=== PATIENT | female | born 1945 | race Caucasian/White ===

== ENCOUNTER → 2020-08-29 10:34 | Outpatient (CLI) | payer MEDICARE, OTHER, SELFPAY ==
[2020-08-29 10:51] LABS: Bacteria Urine None Seen
[2020-08-29 11:53] LABS: Add Manual Diff / Slide Review NO; Basophils Absolute Auto 100 /uL (0-100); Basophils Percent Auto 1.2 % (0-2); Eosinophils Absolute Auto 100 /uL (0-450); Eosinophils Percent Auto 2.9 % (2-4); Hematocrit 40.6 % (36-46); Hemoglobin 13.4 g/dL (12.0-16.0); Lymphocytes Absolute Auto 1300 /uL (1100-4500); Lymphocytes Percent Auto 25.7 % (25-40); Mean Corpuscular HGB Conc 33.1 % (30-36); Mean Corpuscular Hemoglobin 31.8 PG (26-34); Mean Corpuscular Volume 96.1 fL (80-100); Monocytes Absolute Auto 400 /uL (0-900); Monocytes Percent Auto 8.6 % (3-14); Neutrophils Absolute Auto 3200 /uL (1500-7000); Neutrophils Percent Auto 61.6 % (50-75); Platelet Count 218 X10^3/uL (150-400); Red Blood Cell Count 4.23 X10^6/uL (4.0-5.2); Red Cell Distribution Width 13.5 % (11.6-14.8); White Blood Cell Count 5.1 X10^3/uL (4.5-11.0)
[2020-08-29 12:11] LABS: Appearance Urine UA CLEAR; Bilirubin Urine UA NEGATIVE (NEGATIVE); Color Urine UA YELLOW; Glucose Urine UA NEGATIVE (Negative); Ketones Urine UA NEGATIVE (NEGATIVE); Leukocyte Esterase Urine UA NEGATIVE (NEGATIVE); Nitrite Urine UA NEGATIVE (Negative); Occult Blood Urine UA 1+ (Negative); Protein Urine UA NEGATIVE (Negative); Specific Gravity Urine UA 1.025 (1.000-1.035); Urobilinogen Urine UA 0.2 E.U./dL (0.2)
[2020-08-29 12:23] LABS: Culture Indicated Urine Cult Not Indicated; Mucus Urine 2+ (Negative); RBC Urine 0-1/HPF (0-5/HPF); Squamous Epithelial Cell Urine 5-10 /HPF (0-5/HPF); WBC Urine 0-1/HPF (0-5/HPF)
[2020-08-29 12:24] LABS: Alanine Aminotransferase 27 IU/L (<35); Albumin 4.3 g/dL (3.5-5.0); Albumin Globulin Ratio 1.4 (1.0-2.8); Alkaline Phosphatase 46 U/L (38-126); Aspartate Aminotransferase 40 IU/L (14-36); BUN Creatinine Ratio 23.1 (6-22); Bilirubin Total 0.7 mg/dL (0.2-1.3); Blood Urea Nitrogen 15 mg/dL (7-17); Calcium 9.2 mg/dL (8.4-10.2); Carbon Dioxide 28 mmol/L (22-32); Chloride 104 mmol/L (98-107); Estimated Glomerular Filt Rate > 60.0 mL/min (>60); Globulin 3.1 g/dL (1.7-4.1); Glucose 107 mg/dL (80-110); HEMOLYSIS 19 (0-50); Lipase 97 U/L (23-300); Sodium 138 mmol/L (137-145); Total Protein 7.4 g/dL (6.3-8.2)
== END ==
PROVIDERS: PCP Student in an Organized Health Care Education/Training Program; Referring Provider Internal Medicine Gastroenterology; Visit Provider Internal Medicine Gastroenterology
DX: R14.0 Abdominal distension (gaseous) (principal); R10.84 Generalized abdominal pain
CPT/HCPCS: 36415; 80053; 81001; 83690; 85025

== ENCOUNTER 2021-04-15 18:01 | Observation (INO) | payer MEDICARE, OTHER, SELFPAY ==
[2021-04-15] VITALS (15 sets, daily range): BP systolic 141–199; BP diastolic 67–84; PULSE 52–73; RESP 16–32; TEMP 36.2; O2SAT 96–100; BMI 31.7
--- NOTE | 2021-04-15 18:06 | DI.RAD.S_ITS ---
PROCEDURE: XR CHEST 1V INDICATIONS: chest pressure TECHNIQUE: One view of the chest was acquired. COMPARISON: None. FINDINGS: Surgical changes and devices: None. Lungs and pleura: Lungs are clear. No pleural effusions or pneumothorax. Mediastinum: Mediastinal contours appear normal. Heart size is normal. Bones and chest wall: No suspicious bony lesions. Overlying soft tissues appear unremarkable. IMPRESSION: No acute process. Dictated by: Deepali Kuhn M.D. on 04/15/2021 at 18:30 Approved by: Deepali Kuhn M.D. on 04/15/2021 at 18:30
[2021-04-15 18:14] LABS: Add Manual Diff / Slide Review NO; Basophils Absolute Auto 100 /uL (0-100); Basophils Percent Auto 0.7 % (0-2); Eosinophils Absolute Auto 100 /uL (0-450); Hematocrit 41.4 % (36-46); Hemoglobin 14.3 g/dL (12.0-16.0); Lymphocytes Absolute Auto 3500 /uL (1100-4500); Mean Corpuscular HGB Conc 34.5 % (30-36); Mean Corpuscular Hemoglobin 32.9 PG (26-34); Mean Corpuscular Volume 95.4 fL (80-100); Monocytes Absolute Auto 700 /uL (0-900); Monocytes Percent Auto 8.6 % (3-14); Neutrophils Absolute Auto 3400 /uL (1500-7000); Neutrophils Percent Auto 44.7 % (50-75); Platelet Count 253 X10^3/uL (150-400); Red Blood Cell Count 4.34 X10^6/uL (4.0-5.2); Red Cell Distribution Width 14.7 % (11.6-14.8); White Blood Cell Count 7.7 X10^3/uL (4.5-11.0)
[2021-04-15 18:30] LABS: Alanine Aminotransferase 34 IU/L (<35); Albumin 4.6 g/dL (3.5-5.0); Albumin Globulin Ratio 1.5 (1.0-2.8); Alkaline Phosphatase 58 U/L (38-126); Aspartate Aminotransferase 42 IU/L (14-36); BUN Creatinine Ratio 20.3 (6-22); Bilirubin Total 0.6 mg/dL (0.2-1.3); Blood Urea Nitrogen 13 mg/dL (7-17); Carbon Dioxide 20 mmol/L (22-32); Chloride 106 mmol/L (98-107); Creatine Kinase 106 U/L (30-135); Estimated Glomerular Filt Rate > 60.0 mL/min (>60); Globulin 3.1 g/dL (1.7-4.1); Glucose 103 mg/dL (80-110); HEMOLYSIS 45 (0-50); Potassium 3.2 mmol/L (3.4-5.1); Sodium 137 mmol/L (137-145); Total Protein 7.7 g/dL (6.3-8.2)
--- NOTE | 2021-04-15 18:30 | ED.SOB ---
HPI - SOB/Dyspnea General Chief Complaint: Shortness of Breath/Dyspnea Stated Complaint: Difficulty breathing Time Seen by Provider: 04/15/21 18:03 Source: EMS Mode of arrival: EMS Limitations: no limitations History of Present Illness HPI Narrative: 75-year-old female of SVT presents by EMS for evaluation of increasing episodes of tachycardia, palpitations, shortness of breath and episodes of chest pressure this morning. She was seen and evaluated by Cardiology this morning and has plans for an echo and a Holter monitor in a few weeks but over the course the day developed increasing shortness of breath. She denies any pain, pressure, heaviness, dizziness, weakness or lightheadedness currently, only complains of an inability to catch her breath. She denies any fever chills nor nausea or vomiting. She has no new medications or dietary change. She denies recent travel. Related Data Allergies Allergy/AdvReac Type Severity Reaction Status Date / Time No Known Drug Allergies Allergy Verified 04/15/21 18:12 Review of Systems Constitutional Constitutional: Denies chills, Denies fatigue, Denies fever(s), Denies frequent falls, Denies lethargy and Denies weakness Eyes Eyes: Denies change in vision, Denies eye discharge, Denies irritation and Denies loss of vision ENT Ears, Nose, Mouth, and Throat: Denies change in voice, Denies dizziness, Denies neck pain, Denies sore throat and Denies throat swelling Cardiovascular Cardiovascular: Reports chest pain, Denies irregular heart rhythm, Denies lightheadedness, Denies palpitations, Reports dyspnea, Reports dyspnea on exertion and Denies orthopnea Respiratory Respiratory: Denies cough, Reports dyspnea, Reports dyspnea on exertion and Denies wheezing Gastrointestinal Gastrointestinal: Denies abdominal pain, Denies change in bowel habits, Denies diarrhea, Denies nausea and Denies vomiting Musculoskeletal Musculoskeletal: Denies neck pain and Denies numbness Integumentary/Breasts Skin/Breast: Denies pruritus, Denies erythema, Denies rash and Denies wounds Neurologic Neurologic: Denies behavioral changes, Denies confusion, Denies dizziness, Denies frequent falls, Denies loss of vision, Denies numbness and Denies weakness Psychiatric Psychiatric: Denies anxiety, Denies behavioral changes, Denies confusion, Denies depression, Denies homicidal ideation and Denies suicidal ideation Endocrine Endocrine: Denies fatigue, Denies flushing and Denies palpitations Hematologic/Lymphatic Hematologic/Lymphatic: Denies easy bruising Allergic/Immunologic Allergic/Immunologic: Denies urticaria, Denies throat swelling and Denies wheezing Patient History Social History Smoking Status: Never smoker Smoking Status: Never smoker alcohol intake frequency: 0-2 drinks per day Substance Use Type: does not use Exam Narrative Exam Narrative: GENERAL: [75] year old patient appears stated age. Well-nourished, well-developed patient, in mild distress. HEAD: Atraumatic. Normocephalic. EYES: Pupils equal round and reactive. Extraocular motions intact. No scleral icterus. No injection or drainage. ENT: Nose without bleeding, purulent drainage. Throat without erythema, tonsillar hypertrophy or exudate. Airway patent. NECK: Trachea midline. Non tender CARDIOVASCULAR: Regular rate and rhythm without murmurs, gallops, or rubs. RESPIRATORY: Clear to auscultation. Breath sounds equal bilaterally. No wheezes, rales, or rhonchi. GASTROINTESTINAL: Abdomen soft, non-tender, nondistended. EXTREMITIES: No edema or joint tenderness. BACK: Nontender without deformity or crepitance. No flank tenderness. NEURO: AOx3. SKIN: No rash or erythema of visible areas Initial Vital Signs Initial Vital Signs: Vital Signs Temperature 97.1 F L 04/15/21 18:03 Pulse Rate 73 04/15/21 18:03 Respiratory Rate 18 04/15/21 18:03 Blood Pressure 176/79 H 04/15/21 18:03 Pulse Oximetry 100 04/15/21 18:03 Course Orders Ordered: ED Orders 04/15/21 18:06 XR chest 1V Stat EKG-12 Lead Stat 04/15/21 18:09 Complete Blood Count AUTO DIFF Stat Comprehensive Metabolic Panel Stat D Dimer Stat Magnesium Stat NT-proBNP (BNP-Adult 18+) Stat Prothrombin Time INR Stat Troponin & CK Cardiac Panel Stat 04/15/21 18:16 COVID19 - ADMIT ([employer] swab/PCR) Stat 04/15/21 19:05 EKG-12 Lead Stat Acetaminophen (Acetaminophen 325 Mg Tablet) 650 mg PO Q6HR PRN PRN Reason: Fever/Mild Pain (1-3) Aspirin (Aspirin Ec 325 Mg Tablet) 325 mg PO DAILY EMELY Docusate Sodium (Docusate 100 Mg Capsule) 100 mg PO BID [facility] Enoxaparin Sodium (Enoxaparin 40 Mg/0.4 Ml Syringe) 40 mg SUBCUT DAILY [facility] Morphine Sulfate (Morphine 2 Mg/Ml Inj) 2 mg IV Q5MIN PRN PRN Reason: Chest Pain Naloxone HCl (Naloxone 0.4 Mg/Ml Vial) 0.2 mg IV Q2MIN PRN PRN Reason: Opiate Reversal Nitroglycerin (Nitroglycerin 0.4 Mg Sl Tab) 0.4 mg SL [id number] PRN PRN Reason: Chest Pain Ondansetron HCl (Ondansetron 4 Mg/2 Ml Inj) 4 mg IV Q8HR PRN PRN Reason: Nausea And Vomiting Oxycodone HCl (Oxycodone Ir 5 Mg Tablet) 5 mg PO Q6HR PRN PRN Reason: Pain, Moderate (4-6) Pantoprazole Sodium (Pantoprazole Dr 20 Mg Tablet) 20 mg PO 0600 [facility] Sennosides (Sennosides 8.6 Mg Tablet) 17.2 mg PO BEDTIME MEELY Discontinued Medications POTASSIUM CHLORIDE IN WATER (Potassium Cl 10 Meq/100 Ml Neda) 10 meq in 100 mls @ 100 mls/hr IV Q1H EMELY Stop: 04/15/21 23:44 Last Admin: 04/15/21 22:16 Dose: 100 mls/hr Documented by: Infusion: 04/15/21 21:47 Dose: 100 mls/hr Documented by: Admin: 04/15/21 20:47 Dose: 100 mls/hr Documented by: Infusion: 04/15/21 20:45 Dose: 100 mls/hr Documented by: Admin: 04/15/21 19:45 Dose: 100 mls/hr Documented by: BRIA Lorazepam (Lorazepam 0.5 Mg Tablet) 0.5 mg PO NOW ONE Stop: 04/15/21 23:38 Last Admin: 04/15/21 23:40 Dose: 0.5 mg Documented by: BRIA Vital Signs Vital signs: Vital Signs - 8 hr 04/15/21 18:03 04/15/21 18:34 04/15/21 18:35 Temperature 97.1 F L Pulse Rate 73 62 59 L Respiratory Rate 18 18 16 Blood Pressure 176/79 H 187/83 H Pulse Oximetry 100 99 99 04/15/21 19:00 04/15/21 19:01 04/15/21 19:30 Temperature Pulse Rate 60 59 L 65 Respiratory Rate 29 H 32 H Blood Pressure 161/74 H Pulse Oximetry 99 100 98 04/15/21 19:31 04/15/21 20:00 04/15/21 20:01 Temperature Pulse Rate 62 63 62 Respiratory Rate 26 H 27 H 24 Blood Pressure 199/84 H 163/72 H Pulse Oximetry 97 100 100 04/15/21 20:30 04/15/21 21:00 Temperature Pulse Rate 57 L 59 L Respiratory Rate 17 16 Blood Pressure 158/70 H 141/67 H Pulse Oximetry 99 96 MDM - SOB/Dyspnea Lab Data Result diagrams: 04/15/21 18:09 04/15/21 18:09 Labs: Lab Results 04/15/21 04/15/21 04/15/21 Range/Units 18:09 18:09 18:09 WBC 7.7 (4.5-11.0) X10^3/uL RBC 4.34 (4.0-5.2) X10^6/uL Hgb 14.3 (12.0-16.0) g/dL Hct 41.4 (36-46) % MCV 95.4 (80-100) fL MCH 32.9 (26-34) PG MCHC 34.5 (30-36) % RDW 14.7 (11.6-14.8) % Plt Count 253 (150-400) X10^3/uL Neut % (Auto) 44.7 L (50-75) % Lymph % (Auto) 45.0 H (25-40) % [place] % (Auto) 8.6 (3-14) % Eos % (Auto) 1.0 L (2-4) % Baso % (Auto) 0.7 (0-2) % Neut # (Auto) 3400 (8768-5258) /uL Lymph # (Auto) 3500 (0073-6896) /uL [place] # (Auto) 700 (0-900) /uL Eos # (Auto) 100 (0-450) /uL Baso # (Auto) 100 (0-100) /uL PT (10.1-12.7) SECONDS INR (0.9-1.3) D-Dimer < 200 (<230) ng/mL Sodium 137 (137-145) mmol/L Potassium 3.2 L (3.4-5.1) mmol/L Chloride 106 (98-107) mmol/L Carbon Dioxide 20 L (22-32) mmol/L BUN 13 (7-17) mg/dL Creatinine 0.64 (0.52-1.04) mg/dL Estimated GFR > 60.0 (>60) mL/min BUN/Creatinine Ratio 20.3 (6-22) Glucose 103 (80-110) mg/dL Calcium 10.0 (8.4-10.2) mg/dL Magnesium (1.6-2.3) mg/dL Total Bilirubin 0.6 (0.2-1.3) mg/dL AST 42 H (14-36) IU/L ALT 34 (<35) IU/L Alkaline Phosphatase 58 (38-126) U/L Total Creatine Kinase (30-135) U/L CK-MB (CK-2) (<2.37) ng/mL CK-MB (CK-2) Rel Index (1.5-5.0) % Troponin I (0.01-0.034) ng/mL NT-Pro-B Natriuret Pep (<450) pg/mL Total Protein 7.7 (6.3-8.2) g/dL Albumin 4.6 (3.5-5.0) g/dL Globulin 3.1 (1.7-4.1) g/dL Albumin/Globulin Ratio 1.5 (1.0-2.8) SARS-CoV-2 (PCR) (Negative) 04/15/21 04/15/21 04/15/21 Range/Units 18:09 18:09 18:09 WBC (4.5-11.0) X10^3/uL RBC (4.0-5.2) X10^6/uL Hgb (12.0-16.0) g/dL Hct (36-46) % MCV (80-100) fL MCH (26-34) PG MCHC (30-36) % RDW (11.6-14.8) % Plt Count (150-400) X10^3/uL Neut % (Auto) (50-75) % Lymph % (Auto) (25-40) % [place] % (Auto) (3-14) % Eos % (Auto) (2-4) % Baso % (Auto) (0-2) % Neut # (Auto) (2493-2672) /uL Lymph # (Auto) (2355-7879) /uL [place] # (Auto) (0-900) /uL Eos # (Auto) (0-450) /uL Baso # (Auto) (0-100) /uL PT 10.9 (10.1-12.7) SECONDS INR 1.0 (0.9-1.3) D-Dimer (<230) ng/mL Sodium (137-145) mmol/L Potassium (3.4-5.1) mmol/L Chloride (98-107) mmol/L Carbon Dioxide (22-32) mmol/L BUN (7-17) mg/dL Creatinine (0.52-1.04) mg/dL Estimated GFR (>60) mL/min BUN/Creatinine Ratio (6-22) Glucose (80-110) mg/dL Calcium (8.4-10.2) mg/dL Magnesium 2.1 (1.6-2.3) mg/dL Total Bilirubin (0.2-1.3) mg/dL AST (14-36) IU/L ALT (<35) IU/L Alkaline Phosphatase (38-126) U/L Total Creatine Kinase 106 (30-135) U/L CK-MB (CK-2) 1.39 (<2.37) ng/mL CK-MB (CK-2) Rel Index 1.3 L (1.5-5.0) % Troponin I < 0.012 (0.01-0.034) ng/mL NT-Pro-B Natriuret Pep 341 (<450) pg/mL Total Protein (6.3-8.2) g/dL Albumin (3.5-5.0) g/dL Globulin (1.7-4.1) g/dL Albumin/Globulin Ratio (1.0-2.8) SARS-CoV-2 (PCR) (Negative) 04/15/21 Range/Units 18:16 WBC (4.5-11.0) X10^3/uL RBC (4.0-5.2) X10^6/uL Hgb (12.0-16.0) g/dL Hct (36-46) % MCV (80-100) fL MCH (26-34) PG MCHC (30-36) % RDW (11.6-14.8) % Plt Count (150-400) X10^3/uL Neut % (Auto) (50-75) % Lymph % (Auto) (25-40) % [place] % (Auto) (3-14) % Eos % (Auto) (2-4) % Baso % (Auto) (0-2) % Neut # (Auto) (1720-3549) /uL Lymph # (Auto) (4711-8543) /uL [place] # (Auto) (0-900) /uL Eos # (Auto) (0-450) /uL Baso # (Auto) (0-100) /uL PT (10.1-12.7) SECONDS INR (0.9-1.3) D-Dimer (<230) ng/mL Sodium (137-145) mmol/L Potassium (3.4-5.1) mmol/L Chloride (98-107) mmol/L Carbon Dioxide (22-32) mmol/L BUN (7-17) mg/dL Creatinine (0.52-1.04) mg/dL Estimated GFR (>60) mL/min BUN/Creatinine Ratio (6-22) Glucose (80-110) mg/dL Calcium (8.4-10.2) mg/dL Magnesium (1.6-2.3) mg/dL Total Bilirubin (0.2-1.3) mg/dL AST (14-36) IU/L ALT (<35) IU/L Alkaline Phosphatase (38-126) U/L Total Creatine Kinase (30-135) U/L CK-MB (CK-2) (<2.37) ng/mL CK-MB (CK-2) Rel Index (1.5-5.0) % Troponin I (0.01-0.034) ng/mL NT-Pro-B Natriuret Pep (<450) pg/mL Total Protein (6.3-8.2) g/dL Albumin (3.5-5.0) g/dL Globulin (1.7-4.1) g/dL Albumin/Globulin Ratio (1.0-2.8) SARS-CoV-2 (PCR) Negative (Negative) Discharge Plan Departure Patient Disposition: Admitted as Observation Clinical Impression: Chest pain, Acute dyspnea Admit Date/Time: 04/15/21 21:43 Admit Provider: Rosio Lipscomb
[2021-04-15 18:32] LABS: D Dimer < 200 ng/mL (<230)
[2021-04-15 18:36] LABS: Prothrombin Time 10.9 SECONDS (10.1-12.7)
[2021-04-15 18:41] LABS: NT-proBNP (BNP-Adult 18+) 341 pg/mL (<450); Troponin I < 0.012 ng/mL (0.01-0.034)
[2021-04-15 18:46] LABS: CKMB % Relative Index 1.3 % (1.5-5.0); Creatine Kinase MB 1.39 ng/mL (<2.37)
[2021-04-15 18:57] LABS: Magnesium 2.1 mg/dL (1.6-2.3)
[2021-04-15 19:26] LABS: COVID19 - ADMIT (NP swab/PCR) Negative (Negative)
[2021-04-15] MEDS: POTASSIUM CHLORIDE IN WATER 10 MEQ/100 ML PIGGYBACK 100 MEQ IV ×3 (19:45→22:16)
--- NOTE | 2021-04-15 21:58 | DI.NM.S_ITS ---
PROCEDURE: NM GEE PERF SPECT SINGLE STUDY Exercise myocardial perfusion SPECT with gated imaging and ejection fraction RADIOPHARMACEUTICAL: 27.5 mCi Tc-99m sestamibi IV at peak exercise. INDICATIONS: CP TECHNIQUE: Radiopharmaceutical was injected at peak stress test. SPECT images were obtained, with perfusion images in short axis, horizontal long axis, and vertical long axis views. Gated images were reviewed using Fam[employer] software. COMPARISON: None. CARDIAC STRESS: A standard Leonidas treadmill exercise tolerance test was performed by the patient under the supervision of an attending staff. The patient exercised for 4 minutes and 27 seconds; functional aerobic impairment (YUVAL) is +14%. Hemodynamic data: There is normal blood pressure and heart response to exercise. Patient achieved 103% of maximum predicted heart rate. Symptoms: Patient denied anginal chest pain during exercise. EKG: No diagnostic changes of ischemia; no ectopy. FINDINGS: Raw data: There is good labeling of myocardium by radiotracer. No significant motion artifacts. Urjp-[id number] ratio is 0.27 (normal is less than 0.38 for sestamibi tracer, and less than 0.50 for thallium tracer). Left ventricular function: Gated images demonstrate normal left ventricle wall thickening. No segmental wall motion abnormalities. Left ventricle end diastolic volume is 78 mL. Left ventricle stress ejection fraction is 74%; normal values are above 45%. Myocardial perfusion: There is a mildly intense distal anterior wall defect on stress supine images that improves significantly with prone imaging, suggest breast attenuation artifact. No ischemia or infarction. IMPRESSION: Low risk, probably normal treadmill stress test nuclear study. 1) No perfusion evidence of ischemia or infarction. There is a mildly intense distal anterior wall defect on stress supine images that improves significantly with prone imaging, suggest breast attenuation artifact. 2) Normal left ventricular size, wall motion, and systolic function (EF post stress 74%). 3) No ECG evidence of ischemia. 4) No angina during the study. 5) Mildly reduced exercise tolerance (7.0 METs, YUVAL +14%). Target heart rate achieved. Appropriate BP response to exercise. 6) No prior nuclear stress test available for comparison. Dictated by: Ana Britt MD on 04/16/2021 at 16:59 Approved by: Ana Britt MD on 04/16/2021 at 17:02
[2021-04-15 22:57] LABS: Cholesterol 167 mg/dL (140-199); HDL Cholesterol 107 mg/dL (40-60); LDL Cholesterol Calculated 45 mg/dL (<100); Triglycerides 77 mg/dL (35-150)
[2021-04-15 23:10] LABS: Troponin I < 0.012 ng/mL (0.01-0.034)
[2021-04-15] MEDS: LORazepam 0.5 MG TABLET PO (23:40)
[2021-04-16] VITALS (10 sets, daily range): BP systolic 121–160; BP diastolic 65–76; PULSE 59–70; RESP 14–18; TEMP 36.1–36.7; O2SAT 95–98; BMI 31.7
[2021-04-16] MEDS: POTASSIUM CHLORIDE IN WATER 10 MEQ/100 ML PIGGYBACK 100 MEQ IV (01:38)
--- NOTE | 2021-04-16 01:53 | PC.ADMIT ---
[address] Admission Note: Patient arrived to the unit via bed from the ED. Patient is A&O and denies SOB or pain. Patient was oriented to room and call light. Call light was placed within reach. Patient was told to call for assistance when getting out of bed. Next bag of Potassium was administered at 0138 due to waiting on approval from pharmacy. Patient has belongings at bedside and denied placing them in safe. Angel is at bedside. Patient did not know medication doses so medication reconciliation is deferred until able to bring them in. Patient resting in bed. The patient,Hui Jimenez,75 y/o, was given written information regarding hospital policies, unit procedures and contact persons. Patient's smoking status: Never smoker. Vital Signs - 8 hr 04/15/21 18:03 04/15/21 18:34 04/15/21 18:35 Temperature 97.1 F L Pulse Rate 73 62 59 L Respiratory Rate 18 18 16 Blood Pressure 176/79 H 187/83 H Pulse Oximetry 100 99 99 04/15/21 19:00 04/15/21 19:01 04/15/21 19:30 Temperature Pulse Rate 60 59 L 65 Respiratory Rate 29 H 32 H Blood Pressure 161/74 H Pulse Oximetry 99 100 98 04/15/21 19:31 04/15/21 20:00 04/15/21 20:01 Temperature Pulse Rate 62 63 62 Respiratory Rate 26 H 27 H 24 Blood Pressure 199/84 H 163/72 H Pulse Oximetry 97 100 100 04/15/21 20:30 04/15/21 21:00 04/15/21 22:03 Temperature Pulse Rate 57 L 59 L 56 L Respiratory Rate 17 16 Blood Pressure 158/70 H 141/67 H Pulse Oximetry 99 96 97 04/15/21 22:30 04/15/21 23:00 04/15/21 23:30 Temperature Pulse Rate 52 L 54 L 59 L Respiratory Rate 24 22 27 H Blood Pressure Pulse Oximetry 96 99 99 04/16/21 00:30 Temperature 97.8 F Pulse Rate 65 Respiratory Rate 16 Blood Pressure 160/75 H Pulse Oximetry 98
--- NOTE | 2021-04-16 05:40 | P.HP_ITS ---
History of Present Illness History of Present Illness Date Patient Seen: 04/15/21 Time Patient Seen: 22:06 Chief complaint: Difficulty breathing Narrative: Patient is a 75-year-old female with a hx of PSVT presents by EMS for evaluation of increasing episodes of tachycardia, palpitations, shortness of breath and episodes of band like chest pressure underneath her breasts a crossed the upper abdomen area this morning. She was seen and evaluated by Cardiology this morning and has plans for an echo and a Holter monitor in a few weeks but over the course the day developed increasing shortness of breath while at rest sitting in her car. She denies any pain, pressure, heaviness, dizziness, weakness or lightheadedness currently, only complains of an inability to catch her breath. She denies any fever chills, body aches, nausea, vomiting, changes in vision, headaches, weakness, numbness, arm or jaw pain. Though she does feel a tightness in between her shoulder blades which has been coming and going for over a year along with some occasional arm pain that she has had occasionally coming and going in the left arm for the past several years. She has no new medications or dietary change. She denies recent travel. Patient has a history hyperlipidemia, IBS, proximal supraventricular tachycardia, aerophagia, and hyperlipidemia. Patient is fairly anxious during admit interview, it appears several years ago there adult son came to [place] with the onset of brain cancer at the age of 45 of which he from very quickly thereafter. And being here in the hospital is triggering her anxiety and notes that of late she has had increased anxiety regarding stressors at home. Patient's vital signs upon admit are unremarkable BP is 141/67 with a heart rate of 59 patient is satting at 96% on room air though she continues to complain of being short of breath. Patient's troponin was negative, her BMP was is within normal limits 341. Patient did have a low potassium of 3.2 and K rider 40 mEq was started in the ED. patient's chest x-ray was negative for any abnormal TS and her EKG was a sinus rhythm with a ventricular rate of 74, PVCs, without ST o r T-wave changes. Patient was admitted for overnight observation for chest pain. Patient History Medical History (Updated 04/16/21 @ 05:56 by HIPOLITO Garcia) GERD (gastroesophageal reflux disease) Hyperlipidemia Paroxysmal SVT (supraventricular tachycardia) Surgical History (Updated 04/16/21 @ 05:56 by HIPOLITO Garcia) History of appendectomy History of bunionectomy History of colonoscopy with polypectomy History of hysterectomy Family & Social History Family History Mother Bladder cancer Congestive heart failure Father Diabetes mellitus Heart disease Social History: household members spouse Prior Living Arrangements House Safety & Behavioral: Feels Safe in Current Yes Environment Been Physically Hurt or No Threatened By a Person Suicidal Ideation Description None Suicide Plan Description No Plan Tobacco & Substance use: Smoking Status Never smoker alcohol intake frequency 0-2 drinks per day Substance Use Type does not use Meds Home Medications and Allergies Home Medications Medication Instructions Recorded Confirmed Type aspirin 81 mg PO DAILY 04/16/21 04/16/21 History clindamycin phosphate 1 applic TOPICAL PRN PRN 04/16/21 04/16/21 History estradiol 10 mcg VAGINAL 2XW 04/16/21 04/16/21 History estradiol [Vagifem] 10 mcg VAGINAL 2XW 04/16/21 04/16/21 History hydrocortisone 1 applic TOPICAL PRN PRN 04/16/21 04/16/21 History hyoscyamine sulfate 0.125 mg SUBLINGUAL BID-QID PRN 04/16/21 04/16/21 History metoprolol tartrate 25 mg PO BID 04/16/21 04/16/21 History omega-3 fatty acids [Fish Oil] 1,250 mg PO BID 04/16/21 04/16/21 History omeprazole 20 mg PO DAILY PRN 04/16/21 04/16/21 History peppermint oil [IBgard] 90 mg PO BID 04/16/21 04/16/21 History pimecrolimus [Elidel] 1 applic TOPICAL BID PRN 04/16/21 04/16/21 History rosuvastatin 10 mg PO DAILY 04/16/21 04/16/21 History vit C,U-Ao-jdplb-lutein-zeaxan 1 tab PO QAM AND QHS 04/16/21 04/16/21 History [PreserVision AREDS-2] Allergies Allergy/AdvReac Type Severity Reaction Status Date / Time No Known Drug Allergies Allergy Verified 04/15/21 18:12 Review of Systems Review of Systems ROS: Yes All systems reviewed with the patient and are negative except as otherwise documented Cardiovascular Cardiovascular: Reports dyspnea Respiratory Respiratory: Reports dyspnea Psychiatric Psychiatric: Reports anxiety Exam Vital Signs (past 8 hours): - 04/15/21 22:03 04/15/21 22:30 04/15/21 23:00 Temperature Pulse Rate 56 L 52 L 54 L Respiratory Rate 24 22 Blood Pressure Pulse Oximetry 97 96 99 04/15/21 23:30 04/16/21 00:30 04/16/21 01:56 Temperature 97.8 F Pulse Rate 59 L 65 Respiratory Rate 27 H 16 Blood Pressure 160/75 H Pulse Oximetry 99 98 98 04/16/21 05:00 Temperature 98.1 F Pulse Rate 67 Respiratory Rate 14 Blood Pressure 121/65 Pulse Oximetry 97 Oxygen Delivery Method Room Air Oxygen Flow Rate 0 Narrative Exam Narrative: General: Patient is a well-developed, well-nourished female in no distress at this time. HEENT: Normocephalic, atraumatic, extraocular muscles intact, oral pharynx is clear and mucous membranes are moist. Neck is supple and symmetric, trachea is midline, no adenopathy, no thyroid enlargement, nontender, no masses palpated. Negative for JVD Chest: Normal AP diameter and contour without kyphoscoliosis, no nasal flaring, retractions, or tachypneic labored Lungs: Auscultation of all lung gutierrez are clear without adventitious sounds, wheezes, rhonchi, or rales. Cardio: S1 & S2 with regular rate and rhythm without murmur, rubs, or gallops, no carotid bruit, no cardiac pulsations present. Abdomen: Soft nontender, negative for organomegaly, or masses. Bowel sounds are present in all 4 quadrants without guarding or rebound, no CVA tenderness. Musculoskeletal: Muscle strength and tone are equal within normal limits, no deformity, crepitus, effusions, cyanosis, clubbing or edema present. Full range of motion intact radial and pedal pulses are normal. Skin: Warm dry and intact without rashes, ulcerations or petechiae. Neuro: Alert and orientated x3, strength is +5/5 in all extremities, sensation to touch intact, no gross deficits noted of cranial nerves. Psych: Patient has a well-kept appearance, appropriate affect, mental status attitude thought context and judgment are appropriate for age. Objective Labs Result Diagrams: 04/15/21 18:09 04/15/21 18:09 Labs: Laboratory Results - last 24 hr 04/15/21 04/15/21 04/15/21 18:09 18:09 18:09 WBC 7.7 RBC 4.34 Hgb 14.3 Hct 41.4 MCV 95.4 MCH 32.9 MCHC 34.5 RDW 14.7 Plt Count 253 Neut % (Auto) 44.7 L Lymph % (Auto) 45.0 H Perry % (Auto) 8.6 Eos % (Auto) 1.0 L Baso % (Auto) 0.7 Neut # (Auto) 3400 Lymph # (Auto) 3500 Perry # (Auto) 700 Eos # (Auto) 100 Baso # (Auto) 100 PT INR D-Dimer < 200 Sodium 137 Potassium 3.2 L Chloride 106 Carbon Dioxide 20 L BUN 13 Creatinine 0.64 Estimated GFR > 60.0 BUN/Creatinine Ratio 20.3 Glucose 103 Calcium 10.0 Magnesium Total Bilirubin 0.6 AST 42 H ALT 34 Alkaline Phosphatase 58 Total Creatine Kinase CK-MB (CK-2) CK-MB (CK-2) Rel Index Troponin I NT-Pro-B Natriuret Pep Total Protein 7.7 Albumin 4.6 Globulin 3.1 Albumin/Globulin Ratio 1.5 Triglycerides Cholesterol LDL Cholesterol, Calc HDL Cholesterol SARS-CoV-2 (PCR) 04/15/21 04/15/21 04/15/21 18:09 18:09 18:09 WBC RBC Hgb Hct MCV MCH MCHC RDW Plt Count Neut % (Auto) Lymph % (Auto) Perry % (Auto) Eos % (Auto) Baso % (Auto) Neut # (Auto) Lymph # (Auto) Perry # (Auto) Eos # (Auto) Baso # (Auto) PT 10.9 INR 1.0 D-Dimer Sodium Potassium Chloride Carbon Dioxide BUN Creatinine Estimated GFR BUN/Creatinine Ratio Glucose Calcium Magnesium 2.1 Total Bilirubin AST ALT Alkaline Phosphatase Total Creatine Kinase 106 CK-MB (CK-2) 1.39 CK-MB (CK-2) Rel Index 1.3 L Troponin I < 0.012 NT-Pro-B Natriuret Pep 341 Total Protein Albumin Globulin Albumin/Globulin Ratio Triglycerides Cholesterol LDL Cholesterol, Calc HDL Cholesterol SARS-CoV-2 (PCR) 04/15/21 04/15/21 04/15/21 18:16 22:32 22:32 WBC RBC Hgb Hct MCV MCH MCHC RDW Plt Count Neut % (Auto) Lymph % (Auto) Perry % (Auto) Eos % (Auto) Baso % (Auto) Neut # (Auto) Lymph # (Auto) Perry # (Auto) Eos # (Auto) Baso # (Auto) PT INR D-Dimer Sodium Potassium Chloride Carbon Dioxide BUN Creatinine Estimated GFR BUN/Creatinine Ratio Glucose Calcium Magnesium Total Bilirubin AST ALT Alkaline Phosphatase Total Creatine Kinase CK-MB (CK-2) CK-MB (CK-2) Rel Index Troponin I < 0.012 NT-Pro-B Natriuret Pep Total Protein Albumin Globulin Albumin/Globulin Ratio Triglycerides 77 Cholesterol 167 LDL Cholesterol, Calc 45 HDL Cholesterol 107 H SARS-CoV-2 (PCR) Negative Assessment & Plan Assessment & Plan narrative: 1. Acute chest pain-recurrent, acute on chronic, not present on admission in ED in the setting of paroxysmal SVT and hyperlipidemia, chronic, not present on admission -Rule out myocardial ischemia, ACS, CAD, aortic dissection Heart score: 6, GCS score:15 -Continuous tele monitoring and order echo, and stress test for tomorrow -Serial troponins 1 Q 6 hours x3, proBNP, TSH, BNP, Mag, lipids - aspirin 325 mg QD -echo and stress test ordered for tomorrow, recommend Holter to be monitored upon discharge Monitor for hypertensive emergencies with acute end-organ damage, ventricular tachycardia, unstable SVT, hypertension, angina or CT, heart failure, renal function. O2 to keep O2 sats greater than 92% potassium > 4 and Mag > 2 -continue patient's rouvastatin and metoprolol 2. Hypokalemia, acute, present on admission -as evidence by a potassium of 3.2-40 mEq IV provided in the ED will continue to monitor electrolyte. 3. GERD, chronic, not present on admission-well controlled -continue patient's omeprazole Code status: Full code Surrogate decision maker: Spouse Sam Code PCR: Negative DVT/VTE prophylaxis: Lovenox 40 mg and SCDs Scores GCS Bridget coma scale eye opening: Spontaneous [place] coma scale verbal response: Orientated [place] coma scale motor response: Obey commands [place] coma scale total score: 15 Wells' Criteria for PE Clinical signs and symptoms of DVT: No PE is #1 Dx or equally likely: No Heart rate > 100: No Immobilization at least 3 days or surg in previous 4 weeks: No History of PE or DVT: No Hemoptysis: No Malignancy w/Treatment within 6 months or palliative: No Wells' PE Score total: 0
[2021-04-16] MEDS: PANTOPRAZOLE DR 20 MG TABLET PO (05:46)
[2021-04-16 06:02] LABS: INR 1.1 (0.9-1.3); Prothrombin Time 11.8 SECONDS (10.1-12.7)
[2021-04-16 06:21] LABS: Troponin I < 0.012 ng/mL (0.01-0.034)
[2021-04-16 06:41] LABS: BUN Creatinine Ratio 20.3 (6-22); Blood Urea Nitrogen 12 mg/dL (7-17); Calcium 9.4 mg/dL (8.4-10.2); Carbon Dioxide 24 mmol/L (22-32); Chloride 108 mmol/L (98-107); Estimated Glomerular Filt Rate > 60.0 mL/min (>60); Glucose 104 mg/dL (80-110); HEMOLYSIS < 15 (0-50); Sodium 137 mmol/L (137-145)
[2021-04-16 06:50] LABS: NT-proBNP (BNP-Adult 18+) 495 pg/mL (<450)
[2021-04-16] MEDS: ASPIRIN EC 325 MG TABLET PO (09:55)
[2021-04-16] MEDS: ENOXAPARIN 40 MG/0.4 ML SYRINGE SUBCUT (09:55)
[2021-04-16] MEDS: DOCUSATE 100 MG CAPSULE PO (09:55)
[2021-04-16] MEDS: ATORVASTATIN 20 MG TABLET PO (09:55)
--- NOTE | 2021-04-16 11:13 | PC.NURSE ---
Addendum entered by Araceli Sampson R.N. 04/16/21 13:08: Patient returned from DI. Denies pain at this time. Back on tele, remains SL. Original Note: Patient A/O x 4, denies chest pain, lightheadedness, dizziness or upper gastric pain at this time. Remains NPO. Morning medications administered except Metoprolol, held per MD. Patient on RA, 98%. remains bedside. Denies further needs at this time.
--- NOTE | 2021-04-16 12:45 | PT-IP ANOTE ---
checked on pt and pt talking with the doctor. checked back on pt and pt is out of her room and spouse stated that pt is having stress test done. will f/u in the afternoon.
--- NOTE | 2021-04-16 13:23 | CM.IDA ---
Initial DCP Assessment Note Pt is a 75 yo female, resident of [place], arrives to the ED w/tachycardia, palpitations, shortness of breath. PMH includes supraventricular tachycardia H+P indicates the following: Patient is fairly anxious during admit interview, it appears several years ago there adult son came to [place] with the onset of brain cancer at the age of 45 of which he from very quickly thereafter. And being here in the hospital is triggering her anxiety and notes that of late she has had increased anxiety regarding stressors at home. PCP: Renita Cervantes Payer: HERMIN[employer]/[place] Met w/patient and her spouse Angel this morning, introduced role of TOLL LINE MECHANIC. Patient states she is awaiting echo and stress test and is hopeful she will be able to go home after. Patient states she is mostly indp at baseline and spouse assists w/cleaning, chores and cooking when needed. Patient states there are no concerns or needs from this TOLL LINE MECHANIC, appreciative of the visit. No needs expected from DC planning team although will remain available in case this changes before patient's DC. SUPRIYA Holliday Discharge Planning/Care Management CM Discharge Assessment Start: 04/16/21 13:21 Freq: Status: Active Protocol: Document 04/16/21 13:21 HECTOR (Rec: 04/16/21 13:23 HECTOR [id number]) Discharge Planning Assessment Assigned Lawn Service Manager SUPRIYA Marks DPOA/Assigned Designee Name Angel Jimenez, spouse Contact Information [phone] Advance Directives? Yes Advance Directives on File No History Provided By Patient,Significant Other Prior Living Arrangements House Household Members spouse Type of transporation used prior to Drives own vehicle admit Independent with ADL's Yes Is patient alert and oriented? Yes Barriers to Discharge No Comment Home w/spouse expected Discharge Plan Home Transportation Arrangement Spouse Referrals Initiated None needed Whiteboard Updated in Patient Room with Yes name and ext. # of Lawn Service Manager
--- NOTE | 2021-04-16 14:04 | PT.IIE ---
Surgical History (Last Updated 04/16/21 @ 05:56 by Rosio Lipscomb [facility]) History of appendectomy History of bunionectomy History of colonoscopy with polypectomy History of hysterectomy Medical History (Last Updated 04/16/21 @ 05:56 by Rosio Lipscomb [facility]) GERD (gastroesophageal reflux disease) Hyperlipidemia Paroxysmal SVT (supraventricular tachycardia) Physical Therapy Inpatient Evaluation/Re-Eval M1 PT/OT-IP Prior Functional Status Start: 04/16/21 15:03 Freq: NEEDED Status: Active Protocol: Document 04/16/21 14:04 AB (Rec: 04/16/21 15:20 AB [id number]) Medical Review Prior Functional Status Medical History Reviewed Yes Communication able to make needs known Mobility and Gait pt stated that she is independent with all mobilties and ambulation without AD but occasionally uses a walking stick due to hip problem Social History Household Members spouse Living Arrangements House Number of Floors (Floors) One Floor Number of Stairs To Enter/Railing? 1 step down to enter with wall rails on B sides of the door Home Environment High Toilet,Walk in Shower Home Equipment Hand Held Shower Employment Status Retired Additional Social History Comment pt has walking sticks M2 PT-IP Current Condition Start: 04/16/21 15:03 Freq: NEEDED Status: Active Protocol: Document 04/16/21 14:04 AB (Rec: 04/16/21 15:20 AB [id number]) Physical Therapy Current Condition Current Condition Evaluation Date 04/16/21 Treatment Diagnosis SOB; chest pain r/o UT; difficulty in walking Onset Date 04/15/21 M3 PT-IP Subjective Start: 04/16/21 15:03 Freq: NEEDED Status: Active Protocol: Document 04/16/21 14:04 AB (Rec: 04/16/21 15:20 AB [id number]) Subjective Physical Therapy Visit Type Type Initial Evaluation Visit Start Time 14:04 Visit Stop Time 14:40 Total Visit Minutes 36 Number of MANUFACTURING ENGINEERING TECHNOLOGIST Visits 0 Physical Therapy Visit Comments Patient Comments pt is agreeable to do PT Therapy Pain Assessment Pain Present Pain Present Denied Pain M4 PT-IP Mobility and Gait Start: 04/16/21 15:03 Freq: NEEDED Status: Active Protocol: Document 04/16/21 14:04 AB (Rec: 04/16/21 15:20 AB [id number]) PT-Bed Mobility Assessment Supine to Sit Supine to Sit Standby Assistance,Bedrails Sit to Supine Sit to Supine Standby Assistance,Bedrails PT-Transfer Assessment Sit to and From Stand Sit to and from Stand Contact Guard Assistance,1 Person Assistance,Use of Upper Extremities Equipment Transfer Assistive Device None,Gait Belt,Straight Cane Orthotic/Prosthetic Devices or Brace: No Comments Mobility Comments pt completed supine to sit SBA but pt used bed rail to assist. pt stated that she is tired and did not sleep much last night. agreed to do PT but requested to go back to bed afterwards. pt was able to sit on EOB SBA. completed sit to stand from EOB CGA and ambulated in room without AD CGA to min A and cues. presents with antalgic gait with increase lateral lean to the R and gait deviation to the R. presents with unsteady gait but without LOB. pt stated that she just finished her PT for L hip bursitis and also has L plantar fasciitis. assessed ambulation using SPC and pt completed SBA and with better steadiness compared to without AD. pt completed up/down step stool holding on to L side of door for support. initially requiring min A. pt educated on techniques and completed up /down step stool using L side of door CGA. pt ambulated using SPC ~ 20 ft in room SBA. pt went back to bed. completed sit to supine SBA. positioned in bed. call light and table placed within reach . pt c/o slight SOB. BP 121/79 O2 sat maintained at 98-99% during PT session and HR 77-79 bpm. Gait Assessment Gait Distance (Feet) 20 Able to Maintain Weight Bearing Status Yes During Gait Assistive Devices Assistive Device None,Gait Belt,Straight Cane Orthotic/Prosthetic Devices or Brace: No Gait Deviations General Gait Pattern Antalgic,Decreased Stride Length,Decreased Feet Clearance Factors Limiting Gait Function Factors Limiting Gait Function Decreased Activity Tolerance, Decreased Strength,Poor Balance Comments Gait Comments pls refer to mobility section for details. pt educated on safety and use of her walking stick at this time. pt understood. Stair Climbing Assessment Evaluation Level of Assist On Stairs Contact Guard Assistance, Minimal Assistance,1 Person Assistance Devices Stair Climbing Assistive Devices Left Railing Technique/Endurance Stair Climbing Direction Ascend and Descend Stair Climbing Technique Step to Step Number of Steps Climbed 1 Query Text: Stair Climbing Set # Repetitions (reps) 2 Comments Stair Climbing Comments pls refer to mobility section for details PT-Balance Assessment Sitting Balance and Reactions Static Sitting Balance Ability Good Dynamic Sitting Balance Ability Good Standing Balance and Reactions Static Standing Balance Ability Fair Dynamic Standing Balance Ability Fair Device Used SPC M5 PT-IP Objective Assessments Start: 04/16/21 15:03 Freq: NEEDED Status: Active Protocol: Document 04/16/21 14:04 AB (Rec: 04/16/21 15:20 AB [id number]) Orientation Orientation/Cognition Level of Alertness Alert Orientation Name,Place,Situation Language Function Ability No Deficits Noted Safety Awareness Understands Safety Issues Memory Description No Deficits Noted Gross Range of Motion Lower Extremity ROM Assessment Within Functional Limits Strength Lower Extremity Strength Assessment Within Functional Limits Coordination Assessment Gross Coordination Gross Coordination WNL Sensation Assessment Sensation Gross Sensation WNL Muscle Tone Muscle Tone WNL Yes M6 PT-IP Treatment Start: 04/16/21 15:03 Freq: NEEDED Status: Active Protocol: Document 04/16/21 14:04 AB (Rec: 04/16/21 15:20 AB [id number]) Physical Therapy Treatment Education Education Provided Safety M7 PT-IP Assessment and Plan Start: 04/16/21 15:03 Freq: NEEDED Status: Active Protocol: Document 04/16/21 14:04 AB (Rec: 04/16/21 15:20 AB [id number]) PT Summary Assessment and Plan Potential Rehabilitation Potential Good Status of Condition at Evaluation Stable Summary Impairments Pain,ROM,Strength,Balance,Bed Mobility,Transfers,Gait, Activity Tolerance Assessment Summary pt requiring CGA to min A with mobility. recommending use of her walking stick for ambulation at this time for safety and pt understood. pt lives with her spouse and spouse will be able to assist pt at home. pt presents with decrease activity tolerance affecting mobility. will continue PT to improve overall strength and functional independence. Goals Bed Mobility Goal Independent Transfer Goal Independent Gait Goal Independent Gait Distance 200 Other Goals up/down 1 step 1 rail mod I Days to Meet Goals 3 Frequency of Treatment Frequency Of Treatment Once a Day Treatment Plan Physical Therapy Treatment Plan Bed Mobility Training,Transfer Training,Gait Training, Therapeutic Exercise,Balance Retraining,Discharge Planning, Neuromuscular Re-ed, Coordination Retraining Other Recommendations and Next Treatment ambulation, stair climbing Focus Recommendations To Nursing Amount of Assist Needed 1 Person Assist Discharge Recommendations PT Discharge Recommendations Home with Assistance Transportation Needs at Discharge Private Vehicle
--- NOTE | 2021-04-16 18:02 | PM.DS.1 ---
History of Present Illness History of Present Illness Chief complaint: Difficulty breathing Narrative: Patient is a 75-year-old female with a hx of PSVT presents by EMS for evaluation of increasing episodes of tachycardia, palpitations, shortness of breath and episodes of band like chest pressure underneath her breasts a crossed the upper abdomen area this morning. She was seen and evaluated by Cardiology this morning and has plans for an echo and a Holter monitor in a few weeks but over the course the day developed increasing shortness of breath while at rest sitting in her car. She denies any pain, pressure, heaviness, dizziness, weakness or lightheadedness currently, only complains of an inability to catch her breath. She denies any fever chills, body aches, nausea, vomiting, changes in vision, headaches, weakness, numbness, arm or jaw pain. Though she does feel a tightness in between her shoulder blades which has been coming and going for over a year along with some occasional arm pain that she has had occasionally coming and going in the left arm for the past several years. She has no new medications or dietary change. She denies recent travel. Patient has a history hyperlipidemia, IBS, proximal supraventricular tachycardia, aerophagia, and hyperlipidemia. Patient is fairly anxious during admit interview, it appears several years ago there adult son came to [place] with the onset of brain cancer at the age of 45 of which he from very quickly thereafter. And being here in the hospital is triggering her anxiety and notes that of late she has had increased anxiety regarding stressors at home. Patient's vital signs upon admit are unremarkable BP is 141/67 with a heart rate of 59 patient is satting at 96% on room air though she continues to complain of being short of breath. Patient's troponin was negative, her BMP was is within normal limits 341. Patient did have a low potassium of 3.2 and K rider 40 mEq was started in the ED. patient's chest x-ray was negative for any abnormal TS and her EKG was a sinus rhythm with a ventricular rate of 74, PVCs, without ST or T-wave changes. Patient was admitted for overnight observation for chest pain. Discharge Providers Provider Date of admission: 04/15/21 21:43 Discharge Date: 04/16/21 Primary care physician: AYDIN Everett Consults: 04/15/21 22:02 Consult to Physical Therapy Evaluate & Treat Comment: CP with exertion Physician Instructions: Evaluate and Treat Discharge provider: Navin Bowen MD Summary Hospital Course Discharge Diagnosis: 1. Dyspnea 2. Atypical chest pain 3. Palpitations 4. History of PSVT 5. Mild hypokalemia PROCEDURE: NM GEE PERF SPECT SINGLE STUDY Exercise myocardial perfusion SPECT with gated imaging and ejection fraction RADIOPHARMACEUTICAL: 27.5 mCi Tc-99m sestamibi IV at peak exercise. INDICATIONS: CP TECHNIQUE: Radiopharmaceutical was injected at peak stress test. SPECT images were obtained, with perfusion images in short axis, horizontal long axis, and vertical long axis views. Gated images were reviewed using [employer] software. COMPARISON: None. CARDIAC STRESS: A standard Leonidas treadmill exercise tolerance test was performed by the patient under the supervision of an attending staff. The patient exercised for 4 minutes and 27 seconds; functional aerobic impairment (YUVAL) is +14%. Hemodynamic data: There is normal blood pressure and heart response to exercise. Patient achieved 103% of maximum predicted heart rate. Symptoms: Patient denied anginal chest pain during exercise. EKG: No diagnostic changes of ischemia; no ectopy. FINDINGS: Raw data: There is good labeling of myocardium by radiotracer. No significant motion artifacts. Ucop-zq-pdhsq ratio is 0.27 (normal is less than 0.38 for sestamibi tracer, and less than 0.50 for thallium tracer). Left ventricular function: Gated images demonstrate normal left ventricle wall thickening. No segmental wall motion abnormalities. Left ventricle end diastolic volume is 78 mL. Left ventricle stress ejection fraction is 74%; normal values are above 45%. Myocardial perfusion: There is a mildly intense distal anterior wall defect on stress supine images that improves significantly with prone imaging, suggest breast attenuation artifact. No ischemia or infarction. IMPRESSION: Low risk, probably normal treadmill stress test nuclear study. 1) No perfusion evidence of ischemia or infarction. There is a mildly intense distal anterior wall defect on stress supine images that improves significantly with prone imaging, suggest breast attenuation artifact. 2) Normal left ventricular size, wall motion, and systolic function (EF post stress 74%). 3) No ECG evidence of ischemia. 4) No angina during the study. 5) Mildly reduced exercise tolerance (7.0 METs, YUVAL +14%). Target heart rate achieved. Appropriate BP response to exercise. 6) No prior nuclear stress test available for comparison. Dictated by: Ana Britt MD on 04/16/2021 at 16:59 Approved by: Ana Britt MD on 04/16/2021 at 17:02 Patient was admitted for rule out and had serial 9- troponin and no ischemic findings on EKG. There is no significant ectopy during her treadmill myocardial perfusion stress test which was a low risk study. Patient did have mild hypokalemia with serum potassium of 3.2 and received potassium replacement with repeat potassium level of 4.0. She is not on any diuretics. Patient is already scheduled for echo and ZIO patch later this month with her diagnostic technologist Dr. Suazo and will be following up with him. She should also have potassium recheck and ideally have her potassium level above 4.0 due to history of PSVT. Exam Vital Signs (past 8 hours): - 04/16/21 13:06 04/16/21 13:12 04/16/21 14:25 Temperature 97.1 F L Pulse Rate 59 L Respiratory Rate 16 Blood Pressure 139/76 Pulse Oximetry 97 96 97 04/16/21 15:47 Temperature 97.3 F L Pulse Rate 70 Respiratory Rate 18 Blood Pressure 133/70 Pulse Oximetry 97 Oxygen Delivery Method Room Air Oxygen Flow Rate 0 Objective Labs Result Diagrams: 04/15/21 18:09 04/16/21 05:11 Labs: Laboratory Results - last 24 hr 04/15/21 04/15/21 04/15/21 18:09 18:09 18:09 WBC 7.7 RBC 4.34 Hgb 14.3 Hct 41.4 MCV 95.4 MCH 32.9 MCHC 34.5 RDW 14.7 Plt Count 253 Neut % (Auto) 44.7 L Lymph % (Auto) 45.0 H [place] % (Auto) 8.6 Eos % (Auto) 1.0 L Baso % (Auto) 0.7 Neut # (Auto) 3400 Lymph # (Auto) 3500 [place] # (Auto) 700 Eos # (Auto) 100 Baso # (Auto) 100 PT INR D-Dimer < 200 Sodium 137 Potassium 3.2 L Chloride 106 Carbon Dioxide 20 L BUN 13 Creatinine 0.64 Estimated GFR > 60.0 BUN/Creatinine Ratio 20.3 Glucose 103 Calcium 10.0 Magnesium Total Bilirubin 0.6 AST 42 H ALT 34 Alkaline Phosphatase 58 Total Creatine Kinase CK-MB (CK-2) CK-MB (CK-2) Rel Index Troponin I NT-Pro-B Natriuret Pep Total Protein 7.7 Albumin 4.6 Globulin 3.1 Albumin/Globulin Ratio 1.5 Triglycerides Cholesterol LDL Cholesterol, Calc HDL Cholesterol SARS-CoV-2 (PCR) 04/15/21 04/15/21 04/15/21 18:09 18:09 18:09 WBC RBC Hgb Hct MCV MCH MCHC RDW Plt Count Neut % (Auto) Lymph % (Auto) [place] % (Auto) Eos % (Auto) Baso % (Auto) Neut # (Auto) Lymph # (Auto) [place] # (Auto) Eos # (Auto) Baso # (Auto) PT 10.9 INR 1.0 D-Dimer Sodium Potassium Chloride Carbon Dioxide BUN Creatinine Estimated GFR BUN/Creatinine Ratio Glucose Calcium Magnesium 2.1 Total Bilirubin AST ALT Alkaline Phosphatase Total Creatine Kinase 106 CK-MB (CK-2) 1.39 CK-MB (CK-2) Rel Index 1.3 L Troponin I < 0.012 NT-Pro-B Natriuret Pep 341 Total Protein Albumin Globulin Albumin/Globulin Ratio Triglycerides Cholesterol LDL Cholesterol, Calc HDL Cholesterol SARS-CoV-2 (PCR) 04/15/21 04/15/21 04/15/21 18:16 22:32 22:32 WBC RBC Hgb Hct MCV MCH MCHC RDW Plt Count Neut % (Auto) Lymph % (Auto) [place] % (Auto) Eos % (Auto) Baso % (Auto) Neut # (Auto) Lymph # (Auto) [place] # (Auto) Eos # (Auto) Baso # (Auto) PT INR D-Dimer Sodium Potassium Chloride Carbon Dioxide BUN Creatinine Estimated GFR BUN/Creatinine Ratio Glucose Calcium Magnesium Total Bilirubin AST ALT Alkaline Phosphatase Total Creatine Kinase CK-MB (CK-2) CK-MB (CK-2) Rel Index Troponin I < 0.012 NT-Pro-B Natriuret Pep Total Protein Albumin Globulin Albumin/Globulin Ratio Triglycerides 77 Cholesterol 167 LDL Cholesterol, Calc 45 HDL Cholesterol 107 H SARS-CoV-2 (PCR) Negative 04/16/21 04/16/21 04/16/21 05:11 05:11 05:11 WBC RBC Hgb Hct MCV MCH MCHC RDW Plt Count Neut % (Auto) Lymph % (Auto) [place] % (Auto) Eos % (Auto) Baso % (Auto) Neut # (Auto) Lymph # (Auto) [place] # (Auto) Eos # (Auto) Baso # (Auto) PT 11.8 INR 1.1 D-Dimer Sodium Potassium Chloride Carbon Dioxide BUN Creatinine Estimated GFR BUN/Creatinine Ratio Glucose Calcium Magnesium Total Bilirubin AST ALT Alkaline Phosphatase Total Creatine Kinase CK-MB (CK-2) CK-MB (CK-2) Rel Index Troponin I < 0.012 NT-Pro-B Natriuret Pep 495 H Total Protein Albumin Globulin Albumin/Globulin Ratio Triglycerides Cholesterol LDL Cholesterol, Calc HDL Cholesterol SARS-CoV-2 (PCR) 04/16/21 05:11 WBC RBC Hgb Hct MCV MCH MCHC RDW Plt Count Neut % (Auto) Lymph % (Auto) [place] % (Auto) Eos % (Auto) Baso % (Auto) Neut # (Auto) Lymph # (Auto) [place] # (Auto) Eos # (Auto) Baso # (Auto) PT INR D-Dimer Sodium 137 Potassium 4.0 Chloride 108 H Carbon Dioxide 24 BUN 12 Creatinine 0.59 Estimated GFR > 60.0 BUN/Creatinine Ratio 20.3 Glucose 104 Calcium 9.4 Magnesium Total Bilirubin AST ALT Alkaline Phosphatase Total Creatine Kinase CK-MB (CK-2) CK-MB (CK-2) Rel Index Troponin I NT-Pro-B Natriuret Pep Total Protein Albumin Globulin Albumin/Globulin Ratio Triglycerides Cholesterol LDL Cholesterol, Calc HDL Cholesterol SARS-CoV-2 (PCR) [facility] Medical History (Updated 04/16/21 @ 05:56 by HIPOLITO Garcia) GERD (gastroesophageal reflux disease) Hyperlipidemia Paroxysmal SVT (supraventricular tachycardia) Surgical History (Updated 04/16/21 @ 05:56 by HIPOLITO Garcia) History of appendectomy History of bunionectomy History of colonoscopy with polypectomy History of hysterectomy Family History Mother Bladder cancer Congestive heart failure Father Diabetes mellitus Heart disease Social History household members: spouse Smoking Status: Never smoker Discharge Plan Discharge Plan Patient Disposition: Home Provider Discharge Comment: Your stress test is a low risk study. Please follow up with Dr. Suazo to complete your cardiac evaluation. Have your potassium level rechecked when you see your provider. Discharge orders & Medications Prescriptions: Continued metoprolol tartrate 25 mg Tablet 25 mg PO BID RF: 0 hyoscyamine sulfate 0.125 mg Tablet, Sublingual 0.125 mg SUBLINGUAL BID-QID PRN (Reason: Abdominal spasm) RF: 0 pimecrolimus [Elidel] 1 % Cream 1 applic TOPICAL BID PRN (Reason: Eczema-Face) RF: 0 omeprazole 20 mg Capsule,Delayed Release(Dr/Ec) 20 mg PO DAILY PRN (Reason: Acid Reflux) RF: 0 aspirin 81 mg Tablet 81 mg PO DAILY RF: 0 hydrocortisone 2.5 % Ointment 1 applic TOPICAL PRN PRN (Reason: Itchy ear canal) RF: 0 clindamycin phosphate 1 % Solution 1 applic TOPICAL PRN PRN (Reason: Folliculitis) RF: 0 omega-3 fatty acids Capsule 1,250 mg PO BID RF: 0 rosuvastatin 10 mg Tablet 10 mg PO DAILY RF: 0 estradiol [Vagifem] 10 mcg Tablet 10 mcg VAGINAL 2XW RF: 0 PreserVision AREDS-2 250-90-40-1 mg Capsule 1 tab PO QAM AND QHS RF: 0 IBgard 90 mg Capsule,Delayed,Extend.Release 90 mg PO BID RF: 0 estradiol 10 mcg Insert 10 mcg VAGINAL 2XW RF: 0 Follow up/Referrals: Renita Cervantes ARNP [Primary Care Provider] - Noe Suazo MD [Non-Staff] - As previously scheduled Diet/Activity/Treatments Diet: Regular Discharge Data Primary Care Provider: Renita Cervantes Attending Provider: Rosio Lipscomb
--- NOTE | 2021-04-16 19:30 | PC.NURSE ---
Patient discharged in stable condition. Discharge instructions/education completed and discussed with patient and spouse. All belongings were gathered and taken with spouse. She was taken downstairs in a wheelchair. No further concerns at this time.
== END 2021-04-16 19:32 | disposition home or self-care (01) ==
LOC: ED 20:05 → AC 04-16 00:28
PROVIDERS: Admitting Provider Nurse Practitioner Family; Emergency Provider Emergency Medicine; PCP Student in an Organized Health Care Education/Training Program; Referring Provider Emergency Medicine; Visit Provider Nurse Practitioner Family
DX: R06.02 Shortness of breath (principal); R00.2 Palpitations; R07.89 Other chest pain; E87.6 Hypokalemia; K21.9 Gastro-esophageal reflux disease without esophagitis; F41.9 Anxiety disorder, unspecified; E78.5 Hyperlipidemia, unspecified; Z20.822 Contact with and (suspected) exposure to COVID-19
CPT/HCPCS: 36415; 71045; 78451; 80048; 80053; 80061; 82550; 82553; 83735; 83880; 84484; 85025; 85379; 85610; 87635; 93005; 93017; 96365; 96372; 97161; 99284; C9803; G0378; A9502; J1650

== ENCOUNTER → 2021-06-09 12:56 | Outpatient (CLI) | payer MEDICARE, OTHER, SELFPAY ==
[2021-04-16 00:15] VITALS: BMI 31.7
[2021-06-09 14:10] LABS: COVID19 -Nasal RAPID Negative (Negative)
== END ==
PROVIDERS: PCP Student in an Organized Health Care Education/Training Program; Referring Provider Internal Medicine; Visit Provider Internal Medicine
DX: Z20.822 Contact with and (suspected) exposure to COVID-19 (principal)
CPT/HCPCS: 87635; C9803

== ENCOUNTER → 2021-06-09 13:00 | Outpatient (CLI) | payer MEDICARE, OTHER, SELFPAY ==
[2021-04-16 00:15] VITALS: BMI 31.7
--- NOTE | 2021-06-11 08:05 | PM.PFT.1 ---
Pulmonary Function Test Referral & Results Date Patient Seen: 06/09/21 Requesting provider: Noe Suazo Results: The spirometry demonstrates an FVC of 3.45 L which is 109% of predicted. The FEV1 was measured at 2.80 L which is 118% of predicted. The FEV1/FVC ratio was 81 which is 108% of predicted. Following the administration of bronchodilator there was no appreciable change to above normal numbers. Lung volumes show an SVC of 3.73 L which is 122% of predicted. The diffusing capacity was measured at 23.69 which is 83% go to end of sentence my no hemoglobin of predicted. The maximum voluntary ventilation was reduced Interpretation: This study demonstrates normal spirometry. There may be a minimal reduction in diffusing capacity suggesting minimal disease at the capillary alveolar level although this could also be considered normal In the absence of any abnormalities of spirometry, the reduced maximum voluntary ventilation suggest the presence of neuromuscular disease Clinical correlation suggested
== END ==
PROVIDERS: PCP Student in an Organized Health Care Education/Training Program; Referring Provider Internal Medicine Cardiovascular Disease; Visit Provider Internal Medicine Cardiovascular Disease
DX: R06.02 Shortness of breath (principal); I10 Essential (primary) hypertension; Z20.822 Contact with and (suspected) exposure to COVID-19
CPT/HCPCS: 87635; 94060; 94726; 94729; C9803

== ENCOUNTER → 2021-11-19 10:37 | Outpatient (CLI) | payer MEDICARE, OTHER, SELFPAY ==
[2021-04-16 00:15] VITALS: BMI 31.7
[2021-11-19 12:07] LABS: Appearance Urine UA CLEAR; Bilirubin Urine UA NEGATIVE (NEGATIVE); Color Urine UA YELLOW; Glucose Urine UA NEGATIVE (Negative); Ketones Urine UA NEGATIVE (NEGATIVE); Leukocyte Esterase Urine UA NEGATIVE (NEGATIVE); Nitrite Urine UA NEGATIVE (Negative); Occult Blood Urine UA 2+ (Negative); Protein Urine UA NEGATIVE (Negative); Urobilinogen Urine UA 0.2 E.U./dL (0.2)
[2021-11-19 12:13] LABS: pH Urine UA 5.5 (4.5-8.0)
[2021-11-19 12:22] LABS: Add Manual Diff / Slide Review NO; Basophils Absolute Auto 0 /uL (0-100); Basophils Percent Auto 0.9 % (0-2); Eosinophils Absolute Auto 100 /uL (0-450); Eosinophils Percent Auto 3.1 % (2-4); Hematocrit 40.2 % (36-46); Hemoglobin 13.4 g/dL (12.0-16.0); Lymphocytes Absolute Auto 1300 /uL (1100-4500); Lymphocytes Percent Auto 29.4 % (25-40); Mean Corpuscular HGB Conc 33.4 % (30-36); Mean Corpuscular Hemoglobin 31.6 PG (26-34); Mean Corpuscular Volume 94.6 fL (80-100); Monocytes Absolute Auto 400 /uL (0-900); Monocytes Percent Auto 9.9 % (3-14); Neutrophils Absolute Auto 2500 /uL (1500-7000); Neutrophils Percent Auto 56.7 % (50-75); Platelet Count 206 X10^3/uL (150-400); Red Blood Cell Count 4.25 X10^6/uL (4.0-5.2); Red Cell Distribution Width 13.8 % (11.6-14.8); White Blood Cell Count 4.4 X10^3/uL (4.5-11.0)
[2021-11-19 12:23] LABS: Bacteria Urine None Seen; Culture Indicated Urine Cult Not Indicated; RBC Urine 1-5/HPF (0-5/HPF); Squamous Epithelial Cell Urine 1-5 /HPF (0-5/HPF); WBC Urine 0-1/HPF (0-5/HPF)
[2021-11-19 13:16] LABS: Alanine Aminotransferase 22 IU/L (<35); Albumin 4.2 g/dL (3.5-5.0); Albumin Globulin Ratio 1.5 (1.0-2.8); Alkaline Phosphatase 50 U/L (38-126); Aspartate Aminotransferase 33 IU/L (14-36); BUN Creatinine Ratio 22.9 (6-22); Blood Urea Nitrogen 16 mg/dL (7-17); Calcium 9.5 mg/dL (8.4-10.2); Carbon Dioxide 28 mmol/L (22-32); Chloride 103 mmol/L (98-107); Estimated Glomerular Filt Rate > 60.0 mL/min (>60); Globulin 2.8 g/dL (1.7-4.1); Glucose 99 mg/dL (80-110); HEMOLYSIS < 15 (0-50); Potassium 4.1 mmol/L (3.4-5.1); Sodium 137 mmol/L (137-145)
== END ==
PROVIDERS: PCP Student in an Organized Health Care Education/Training Program; Referring Provider Internal Medicine Gastroenterology; Visit Provider Internal Medicine Gastroenterology
DX: R10.84 Generalized abdominal pain (principal); R10.32 Left lower quadrant pain
CPT/HCPCS: 36415; 80053; 81001; 85025

== ENCOUNTER → 2022-05-29 12:30 | Outpatient (CLI) | payer MEDICARE, OTHER, SELFPAY ==
[2021-04-16 00:15] VITALS: BMI 31.7
--- NOTE | 2022-05-29 12:31 | DI.MRI.S_ITS ---
PROCEDURE: MR LUMBAR SPINE WO CON INDICATIONS: Spinal stenosis, lumbar region TECHNIQUE: Noncontrast sagittal T1 spin echo and T2 fast echo, sagittal STIR, and T2 fast spin echo through the lumbar spine. In cases with scoliosis, additional coronal T2 fast spin echo may be performed. COMPARISON: [facility], MR, L-SPINE WITHOUT CONTRAST, 11/27/2015, 12:10. FINDINGS: Image quality: Excellent. Alignment and Curvature: There is grade 1 T12 on L1 retrolisthesis which is new when compared with the MRI from November 27, 2015. Spinal alignment is otherwise normal. Bone Marrow: Marrow is of normal overall signal. No acute vertebral body compression fractures. Spinal Cord: Conus medullaris terminates at the L1 level. Visualized cord demonstrates normal signal and size. Paraspinous Soft Tissues: No paravertebral masses. T12-L1: Severe disc desiccation and height loss. Retrolisthesis. No canal stenosis. Mild bilateral foraminal narrowing. The retrolisthesis is new when compared with the study from 2015. L1-L2: Severe disc desiccation and height loss. Broad-based disc bulge. Moderate facet ligamentum flavum hypertrophy. No canal stenosis. Mild right foraminal narrowing. The extent of degenerative disc disease and right foraminal stenosis is increased from 2016. L2-L3: Moderate disc desiccation and height loss. Broad-based disc bulge. Severe facet and ligamentum flavum hypertrophy. No canal stenosis. No right foraminal narrowing. Mild left foraminal narrowing. These findings are unchanged. L3-L4: Severe disc desiccation and height loss. There is a right paracentral broad-based disc bulge with narrowing of the right lateral recess which is unchanged from 2016. There is severe facet and ligamentum flavum hypertrophy as before. No canal stenosis. Mild bilateral foraminal stenosis. These findings are unchanged. L4-L5: Severe disc desiccation and height loss. Broad-based disc bulge. Severe facet ligamentum flavum hypertrophy. No canal stenosis. Mild right and severe left foraminal stenosis. The extent of left neural foraminal narrowing is slightly increased with increased flattening of the exiting nerve root. L5-S1: Severe disc desiccation and height loss. Mild facet sclerosis. No canal stenosis. Moderate bilateral foraminal narrowing. These findings are unchanged. IMPRESSION: 1. New grade 1 retrolisthesis at T12-L1 when compared with the study dated November 27, 2015. 2. Increased degenerative disc disease at L1-2, now severe when compared with the 2016 study. 3. Increased left neural foraminal stenosis at L4-5 with increased flattening of the exiting nerve root when compared with the 2016 study. Dictated by: Ale Walker M.D. on 05/30/2022 at 16:49 Approved by: Ale Walker M.D. on 05/30/2022 at 16:54
== END ==
PROVIDERS: PCP Student in an Organized Health Care Education/Training Program; Referring Provider Orthopaedic Surgery Orthopaedic Surgery of the Spine; Visit Provider Orthopaedic Surgery Orthopaedic Surgery of the Spine
DX: M48.061 Spinal stenosis, lumbar region without neurogenic claudication (principal); M43.16 Spondylolisthesis, lumbar region; M51.36 Other intervertebral disc degeneration, lumbar region
CPT/HCPCS: 72148

== ENCOUNTER 2023-04-05 12:28 | Outpatient (CLI) | payer MEDICARE, OTHER, SELFPAY ==
[2021-04-16 00:15] VITALS: BMI 31.7
--- NOTE | 2023-04-05 12:29 | DI.RAD.S_ITS ---
PROCEDURE: PAIN L/S TRANSFORAMINAL INJECT INDICATIONS: SPONDYLOSIS COMPARISON: Outside Facility, RG, XR L-SPINE 4-6V, 12/27/2022, 10:38. [facility], MR, MR LUMBAR SPINE WO CON, 05/29/2022, 12:39. [facility], CR, XR PELVIS WITH LATERAL HIP LEFT, 11/22/2021, 11:14. [facility] [place], CR, XR LUMBAR SPINE 2 OR 3 VIEWS, 07/13/2021, 15:35. FINDINGS: Fluoroscopic spot filming was performed to verify placement of spinal needles at the left L4-L5 and L5-S1 level(s), as labeled on the films. Appropriate location(s) of the needle tip(s) was confirmed by injection of iodinated contrast. IMPRESSION: Fluoroscopy for pain management. Dictated by: Valentín Laureano M.D. on 04/05/2023 at 13:39 Approved by: Valentín Laureano M.D. on 04/05/2023 at 13:40
--- NOTE | 2023-04-05 12:51 | P.PCN_ITS ---
Date/Time/Diagnoses Date of procedure: 04/05/23 Time of procedure: 13:00 Procedure Notes Physician: Wali Baker Total Fluoroscopy time (seconds): 31 Total sedation minutes: 0 Procedure in detail & Post-procedure care: Left L4-5 and L5-S1 Transforaminal Epidural Steroid Injection Indications: Hui is presenting for treatment of lumbar radiculopathy with low back and leg pain. Preoperative diagnosis: Left lumbar radiculopathy Postoperative diagnosis: Same Focused Examination: Ax3 Mood and affect are normal Vital Signs: VSS Consent: Following review of allergies and potential side effects/complications, including, but not necessarily limited to, infection, allergic reaction, local tissue breakdown, stroke, temporary or permanent nerve injury, paralysis, and possible , the patient indicated that they understood and agreed to proceed.? An informed consent document was signed by the patient, witnessed by a nurse and placed in the patient's chart.? Additionally, other treatment options including medications and physical therapy were reviewed with the patient. All questions were answered. Site was then marked. Anesthesia: Local Position: Prone Monitoring: NIBP, Pulse oximetry, 3 lead EKG Needle used: 22G 3.5 inch spinal needle Contrast: Isovue 300M Injectate: 10 mg Dexamethasone mixed with 1% lidocaine 1 ml and Normal Saline 1 ml per site Technique: The skin was prepped with chloraprep and draped in a sterile fashion. Time out was performed as per protocol. Oxygen applied via NC. Skin and subcutaneous structures of the needle entry site were infiltrated with 3mL of lidocaine 1%. Under fluoroscopic guidance, using an ipsilateral oblique view,?a 22 gauge 3.5 inch needle was advanced to the base of the left L4?pedicle.? The needle was advanced to the superio-posterior aspect of the neural foramen under lateral view.? Oblique and AP views were rechecked. No paresthesias noted by the patient during needle placement. In AP view and utilizing real-time digital subtraction fluoroscopy, 2 ml contrast was slowly injected. Epidural spread was observed without evidence for intravascular nor intrathecal uptake. Contrast spread was seen craniocaudally. The above injectate was then administered, and the needle was subsequently withdrawn. Skin and subcutaneous structures of the needle entry site were infiltrated with 3mL of lidocaine 1%. Under fluoroscopic guidance, using an ipsilateral oblique view,?a 22 gauge 3.5 inch needle was advanced to the base of the left L5? pedicle.? The needle was advanced to the superio-posterior aspect of the neural foramen under lateral view.? Oblique and AP views were rechecked. No paresthesias noted by the patient during needle placement. In AP view and utilizing real-time digital subtraction fluoroscopy, 2 ml contrast was slowly injected. Epidural spread was observed without evidence for intravascular nor intrathecal uptake. Contrast spread was seen craniocaudally. The above injectate was then administered, and the needle was subsequently withdrawn. Band-Aids applied to injection sites. EBL: less than 1 ml Complications: None Post Procedure: Patient was taken to the recovery and monitored. The patient was provided a Pain Log to continue to record the patient's response to the target- specific procedure prior to the patient's follow-up visit with the referring physician. Patient was stable upon discharge. Detailed post procedure instructions were provided. Patient was asked to call in the event of worsening pain, fever, weakness, numbness or bladder or bowel incontinence.
[2023-04-05 12:52] VITALS: BP 172/74; PULSE 62; RESP 18; O2SAT 98
[2023-04-05 13:10] VITALS: BP 192/87; PULSE 65; RESP 20; O2SAT 100
[2023-04-05] MEDS: DEXAMETHASONE 10 MG/ML VIAL 20 MG INJ (13:11)
[2023-04-05] MEDS: IOPAMIDOL 15 ML VIAL 3 ML INJ (13:12)
[2023-04-05 13:15] VITALS: BP 194/86; PULSE 66; RESP 11; O2SAT 100
[2023-04-05 13:20] VITALS: BP 190/75; PULSE 67; RESP 15; O2SAT 99
[2023-04-05 13:26] VITALS: BP 181/79; PULSE 63; RESP 20; O2SAT 99
== END 2023-04-05 13:33 | disposition home or self-care (01) ==
LOC: RAD 12:29
PROVIDERS: PCP Student in an Organized Health Care Education/Training Program; Referring Provider Anesthesiology; Visit Provider Anesthesiology
DX: M54.16 Radiculopathy, lumbar region (principal)
CPT/HCPCS: 64483; 64484; J1100

== ENCOUNTER 2024-05-27 16:20 | Emergency (ER) | payer MEDICARE, OTHER, SELFPAY ==
[2021-04-16 00:15] VITALS: BMI 31.7
[2024-05-27] VITALS (15 sets, daily range): BP systolic 151–200; BP diastolic 67–128; PULSE 55–64; RESP 16–24; TEMP 36.4; O2SAT 95–100; BMI 30.7
--- NOTE | 2024-05-27 16:45 | DI.CT.S_ITS ---
PROCEDURE: CT HEAD/BRAIN WO CON INDICATIONS: Possible TIA TECHNIQUE: Noncontrast 4.5 mm thick angled axial sections acquired from the foramen magnum to the vertex, with coronal and sagittal reformats. For radiation dose reduction, the following was used: automated exposure control, adjustment of mA and/or kV according to patient size. COMPARISON: None. FINDINGS: Image quality: Diagnostic. CSF spaces: Basal cisterns are patent. No extra-axial fluid collections. The ventricles are symmetric in size and shape. Brain: No intracranial bleeds or masses. There is cerebral volume loss for age, with resultant ventricular and sulcal prominence. There are periventricular and deep white matter chronic small vessel ischemic changes. There is intracranial internal carotid artery atherosclerosis. Skull and face: Calvarium and visualized facial bones appear intact, without suspicious lesions. Sinuses: Visualized sinuses and mastoids are clear. IMPRESSION: 1. CT head without acute intracranial abnormalities or acute calvarial fractures. 2. Age-related senescent changes and sequela of chronic small vessel ischemic disease. Dictated by: Edenilson Sarkar M.D. on 05/27/2024 at 18:01 Approved by: Edenilson Sarkar M.D. on 05/27/2024 at 18:01
--- NOTE | 2024-05-27 16:45 | EKG_ITS ---
[address] [address] Test Date: 2024-05-27 Pat Name: Hui Jimenez Department: Room: Gender: Female Welder Tack: GILBERTO : 1945 Requested By: Order Number: [id number] Reading MD: Varun Vick MD Measurements Intervals Bernie Rate: 54 P: 53 WV: 184 QRS: 14 QRSD: 96 T: 52 QT: 448 QTc: 424 Interpretive Statements Sinus bradycardia Electronically Signed On 05-27-2024 17:19:08 PDT by Varun Vick MD
--- NOTE | 2024-05-27 16:45 | DI.CT.S_ITS ---
PROCEDURE: CT ANGIO HEAD AND NECK INDICATIONS: Possible TIA TECHNIQUE: After the administration of intravenous contrast, 1 mm thick sections acquired from the aortic arch through the [place]. 3-dimensional xvgfswr-fwpqnhuow-sqqhsgflme (MIP) and/or volume rendering reformats were acquired of the central intracranial vasculature and neck separately. For radiation dose reduction, the following was used: automated exposure control, adjustment of mA and/or kV according to patient size. COMPARISON: [facility], CT, CT HEAD/BRAIN WO CON, 05/27/2024, 17:03. FINDINGS: Image quality: Diagnostic. BRAIN: CSF spaces: Ventricles are normal in size and shape. Basal cisterns are patent. No extra-axial fluid collections. Brain: No significant abnormality of the brain can be seen. Skull and face: Calvarium and facial bones appear intact, without suspicious lesions. Orbits appear normal. Sinuses: Sinuses and mastoids are clear. HEAD CT ANGIOGRAPHY: Anterior circulation: Intracranial internal carotid arteries are normal in size and flow. The flow within the paired anterior cerebral arteries is normal and symmetric. The flow within the middle cerebral arteries is normal and symmetric. The anterior communicating artery is seen. No aneurysms are seen. Posterior circulation: Visualized portions of the vertebral arteries demonstrate normal caliber, and join to form a normal appearing basilar artery. Flow within the posterior cerebral arteries is normal and symmetric. No aneurysms are seen. NECK CT ANGIOGRAPHY: Carotid system: The great vessels demonstrate a conventional anatomy as they arise from the aortic arch. The origins of the common carotid arteries appear patent. The common carotid arteries demonstrate normal caliber and courses. The bifurcation regions are both widely patent. The internal carotid arteries demonstrate normal calibers and courses. Posterior circulation: The origins of the vertebral arteries both appear widely patent. The more superior extracranial portions of both vertebral arteries also demonstrate normal courses and calibers. They join to form a normal appearing basilar artery. Soft tissues: Visualized neck soft tissues demonstrate no suspicious abnormalities. Bones: No suspicious bony lesions. Visualized cervical spine appears normally aligned. IMPRESSION: Negative CT angiogram of the intracranial and neck arterial vasculature for high-grade stenosis, occlusion, dissection and aneurysm. Multilevel cervical spondylosis. If there is persistent or high clinical suspicion for acute cerebrovascular ischemia/stroke, more sensitive evaluation with brain MRI can be considered. Any quantitative measurements of stenosis were performed using NASCET criteria. Dictated by: Edenilson Sarkar M.D. on 05/27/2024 at 17:54 Approved by: Edenilson Sarkar M.D. on 05/27/2024 at 17:57
[2024-05-27 16:52] LABS: Add Manual Diff / Slide Review NO; Basophils Absolute Auto 100 /uL (0-100); Basophils Percent Auto 1.1 % (0-2); Eosinophils Absolute Auto 200 /uL (0-450); Eosinophils Percent Auto 3.9 % (2-4); Hematocrit 41.4 % (36-46); Hemoglobin 13.7 g/dL (12.0-16.0); Lymphocytes Absolute Auto 1600 /uL (1100-4500); Lymphocytes Percent Auto 29.8 % (25-40); Mean Corpuscular HGB Conc 33.1 % (30-36); Mean Corpuscular Hemoglobin 31.5 PG (26-34); Monocytes Absolute Auto 500 /uL (0-900); Neutrophils Absolute Auto 2900 /uL (1500-7000); Neutrophils Percent Auto 55.2 % (50-75); Platelet Count 202 X10^3/uL (150-400); Red Blood Cell Count 4.35 X10^6/uL (4.0-5.2); Red Cell Distribution Width 13.9 % (11.6-14.8); White Blood Cell Count 5.3 X10^3/uL (4.5-11.0)
[2024-05-27 16:54] LABS: INR 1.3 (0.9-1.3)
[2024-05-27 16:56] LABS: PTT Partial Thromboplastin Tim 48 SECONDS (25.1-36.5)
[2024-05-27 16:59] LABS: Alanine Aminotransferase 25 IU/L (<35); Albumin 4.5 g/dL (3.5-5.0); Albumin Globulin Ratio 1.5 (1.0-2.8); Alkaline Phosphatase 56 U/L (38-126); Aspartate Aminotransferase 35 IU/L (14-36); Blood Urea Nitrogen 17 mg/dL (7-17); Calcium 9.2 mg/dL (8.4-10.2); Carbon Dioxide 27 mmol/L (22-32); Chloride 105 mmol/L (98-107); Creatine Kinase 67 U/L (30-135); Estimated Glomerular Filt Rate > 60 mL/min (>60); Glucose 117 mg/dL (80-110); HEMOLYSIS < 15 (0-50); Lipase 125 U/L (23-300); Magnesium 2.1 mg/dL (1.6-2.3); Potassium 3.6 mmol/L (3.4-5.1); Sodium 139 mmol/L (137-145); Total Protein 7.5 g/dL (6.3-8.2)
--- NOTE | 2024-05-27 17:05 | ED_ITS ---
HPI - Neuro Symptoms/Deficit <Bear Hankins, DO - Last Filed: 05/30/24 07:12> General Chief Complaint: Neuro Symptoms/Deficit Stated Complaint: brought by [facility], possible stroke Time Seen by Provider: 05/27/24 16:28 Source: patient Mode of arrival: Wheelchair History of Present Illness HPI Narrative: Patient is a 78-year-old female. Has a history of paroxysmal atrial fibrillation. Is on Eliquis. Also has a history of reflux disease, hyperlipidemia, lower back discomfort who is here for evaluation of several weeks/months progressively worsening word-finding issues and balance issues and slurring of her words. Patient's states that he has noticed a decline over the past several weeks however today things seemed to be somewhat worse. The patient states that she understands what she wants to say but has trouble getting the words out. She was also noticed that over the past several days if not week she has been having issues with coordination with her left hand. She was left handed and this is the hand that she writes with and she was needed to rest her hand on something in order to write any words. Her states that he has noticed over the past several days that her handwriting has become worse. Her balance does not seem to be worse than baseline. She did have some dental work done earlier today. She denies headache, vision changes, chest pain, shortness of breath, palpitations, abdominal pain, nausea vomiting. No numbness and tingling in her upper and lower extremities. No falls. On Anticoagulants: Yes (Eliquis) Related Data Home Medications Medication Instructions Recorded Confirmed aspirin 81 mg tablet 81 mg PO DAILY 04/16/21 08/01/23 clindamycin phosphate 1 % topical 1 applic topical PRN PRN 04/16/21 08/01/23 solution Folliculitis estradiol 10 mcg vaginal insert 10 mcg vaginal 2XW 04/16/21 08/01/23 estradiol 10 mcg vaginal tablet 10 mcg vaginal 2XW 04/16/21 08/01/23 (Vagifem) hyoscyamine sulfate 0.125 mg 0.125 mg sublingual BID-QID PRN 04/16/21 08/01/23 sublingual tablet Abdominal spasm metoprolol tartrate 25 mg tablet 25 mg PO BID 04/16/21 08/01/23 omeprazole 20 mg capsule,delayed 20 mg PO DAILY PRN Acid Reflux 04/16/21 08/01/23 release peppermint oil 90 mg 90 mg PO BID 04/16/21 08/01/23 capsule,delayed,extended release (IBgard) pimecrolimus 1 % topical cream 1 applic topical BID PRN 04/16/21 08/01/23 (Elidel) Eczema-Face rosuvastatin 10 mg tablet 10 mg PO DAILY 04/16/21 08/01/23 vit C 250 mg-vit E 90 mg-zinc 40 1 tab PO QAM AND QHS 04/16/21 08/01/23 mg-copper 1 tr-reptnm-tqibin capsule (PreserVision AREDS-2) Calcium Citrate 133mg-Magnesium 133 mg PO TID 03/28/23 08/01/23 133mg Fish Oil 1,250 mg PO BID 03/28/23 08/01/23 Saccharomyces boulardii 250 mg 250 mg PO DAILY 03/28/23 08/01/23 capsule (Daily Probiotic (S. boulardii)) betamethasone dipropionate 0.05 % 1 applic topical DAILY PRN 03/28/23 08/01/23 topical cream cholecalciferol (vitamin D3) 75 150 mcg PO DAILY 03/28/23 08/01/23 mcg (3,000 unit) tablet fluconazole 150 mg tablet 150 mg PO Q3D 06/20/23 08/01/23 tizanidine 2 mg tablet 2 mg PO 3XD 06/20/23 08/01/23 Allergies Allergy/AdvReac Type Severity Reaction Status Date / Time No Known Drug Allergies Allergy Verified 05/27/24 16:32 Review of Systems <Bear Hankins DO - Last Filed: 05/30/24 07:12> Review of Systems ROS Unobtainable: All systems reviewed & are unremarkable except as noted in HPI and below Hematologic/Lymphatic On Anticoagulants: Yes (Eliquis) Patient History <Bear Hankins DO - Last Filed: 05/30/24 07:12> Medical History Left leg pain Greater trochanteric bursitis of both hips Low back pain Lumbar radiculopathy GERD (gastroesophageal reflux disease) Paroxysmal SVT (supraventricular tachycardia) Hyperlipidemia Surgical History History of appendectomy History of bunionectomy History of colonoscopy with polypectomy History of hysterectomy Family History Mother Bladder cancer Congestive heart failure Father Diabetes mellitus Heart disease Social History household members: spouse Smoking Status: Never smoker Smoking Status: Never smoker alcohol intake frequency: 0-2 drinks per day Alcohol type: wine Substance Use Type: does not use Exam <Bear Hankins DO - Last Filed: 05/30/24 07:12> Initial Vital Signs Initial Vital Signs: Vital Signs Pulse Oximetry 95 05/27/24 16:26 Const General: cooperative, comfortable and No ill appearing HENMT Head: normal to inspection and normocephalic Resp Effort & Inspection: normal respiratory effort Auscultation: clear to auscultation bilaterally Cardio Rate: regular rate Rhythm: regular rhythm GI Inspection: normal to inspection and non-distended Skin General: no rashes or lesions noted Neuro General: patient alert, patient awake, patient oriented x3 and moves all extremities Cognition: normal cognition Gait: normal gait Motor: muscle tone normal throughout Sensory Exam: no sensory deficits noted Extrem General: capillary refill normal <Dana Briggs MD - Last Filed: 05/27/24 21:07> Initial Vital Signs Initial Vital Signs: Vital Signs Pulse Oximetry 95 05/27/24 16:26 Scores <Bear Hankins DO - Last Filed: 05/30/24 07:12> GCS [place] coma scale eye opening: Spontaneous Bridget coma scale verbal response: Orientated Bridget coma scale motor response: Obey commands Bridget coma scale total score: 15 NIH Stroke Scale Level of Conciousness: Alert, keenly responsive Ask month/age: Answers both questions correctly. Open/close eyes, close hand: Performs both tasks correctly Best gaze horizontal: Normal Visual gutierrez: No visual loss Facial palsy: Normal symetrical movement Left arm drift: No drift for full 10 sec Right arm drift: No drift for full 10 sec Left leg drift: No drift for full 5 sec Right leg drift: No drift for full 5 sec Limb ataxia: Absent Sensory on face/arms/legs: Normal, no sensory loss Best language: No aphasia, normal Dysarthria: Normal Extinction or inattention: No abnormality Total NIH Stroke scale score: 0 <Dana Briggs MD - Last Filed: 05/27/24 21:07> GCS [place] coma scale total score: 15 NIH Stroke Scale Total NIH Stroke scale score: 0 Course <Bear Hankins DO - Last Filed: 05/30/24 07:12> Orders Ordered: ED Orders 05/27/24 16:35 Complete Blood Count AUTO DIFF Stat Comprehensive Metabolic Panel Stat Lipase Stat Magnesium Stat PTT Partial Thromboplastin Lee Stat Prothrombin Time INR Stat Troponin & CK Cardiac Panel Stat 05/27/24 16:45 CT angio head and neck Stat CT head/brain wo con Stat EKG-12 Lead Stat 05/27/24 18:11 MR head/brain wo/w con Stat Vital Signs Vital signs: Vital Signs - 8 hr 05/27/24 16:26 05/27/24 16:27 05/27/24 16:27 Temperature Pulse Rate 60 Respiratory Rate Blood Pressure 200/83 H Pulse Oximetry 95 99 Oxygen Delivery Method 05/27/24 16:30 05/27/24 16:30 05/27/24 16:32 Temperature 97.6 F Pulse Rate 58 L 61 Respiratory Rate 17 Blood Pressure 176/83 H 200/83 H Pulse Oximetry 98 99 Oxygen Delivery Method Room Air 05/27/24 17:00 05/27/24 17:01 05/27/24 17:01 Temperature Pulse Rate 58 L 58 L Respiratory Rate Blood Pressure 186/128 H Pulse Oximetry 97 98 Oxygen Delivery Method 05/27/24 17:32 05/27/24 17:33 05/27/24 17:33 Temperature Pulse Rate 63 63 Respiratory Rate 21 Blood Pressure 178/91 H Pulse Oximetry 97 98 Oxygen Delivery Method 05/27/24 18:00 05/27/24 18:01 05/27/24 18:01 Temperature Pulse Rate 55 L 58 L Respiratory Rate 22 23 Blood Pressure 167/81 H Pulse Oximetry 98 99 Oxygen Delivery Method 05/27/24 19:02 05/27/24 19:03 05/27/24 19:03 Temperature Pulse Rate 64 60 Respiratory Rate Blood Pressure 188/86 H Pulse Oximetry 99 100 Oxygen Delivery Method 05/27/24 19:30 05/27/24 19:31 05/27/24 19:31 Temperature Pulse Rate 56 L 56 L Respiratory Rate 24 Blood Pressure 181/79 H Pulse Oximetry 99 98 Oxygen Delivery Method <Dana Briggs MD - Last Filed: 05/27/24 21:07> Orders Ordered: ED Orders 05/27/24 16:35 Complete Blood Count AUTO DIFF Stat Comprehensive Metabolic Panel Stat Lipase Stat Magnesium Stat PTT Partial Thromboplastin Lee Stat Prothrombin Time INR Stat Troponin & CK Cardiac Panel Stat 05/27/24 16:45 CT angio head and neck Stat CT head/brain wo con Stat EKG-12 Lead Stat 05/27/24 18:11 MR head/brain wo/w con Stat Vital Signs Vital signs: Vital Signs - 8 hr 05/27/24 16:26 05/27/24 16:27 05/27/24 16:27 Temperature Pulse Rate 60 Respiratory Rate Blood Pressure 200/83 H Pulse Oximetry 95 99 Oxygen Delivery Method 05/27/24 16:30 05/27/24 16:30 05/27/24 16:32 Temperature 97.6 F Pulse Rate 58 L 61 Respiratory Rate 17 Blood Pressure 176/83 H 200/83 H Pulse Oximetry 98 99 Oxygen Delivery Method Room Air 05/27/24 17:00 05/27/24 17:01 05/27/24 17:01 Temperature Pulse Rate 58 L 58 L Respiratory Rate Blood Pressure 186/128 H Pulse Oximetry 97 98 Oxygen Delivery Method 05/27/24 17:32 05/27/24 17:33 05/27/24 17:33 Temperature Pulse Rate 63 63 Respiratory Rate 21 Blood Pressure 178/91 H Pulse Oximetry 97 98 Oxygen Delivery Method 05/27/24 18:00 05/27/24 18:01 05/27/24 18:01 Temperature Pulse Rate 55 L 58 L Respiratory Rate 22 23 Blood Pressure 167/81 H Pulse Oximetry 98 99 Oxygen Delivery Method 05/27/24 19:02 05/27/24 19:03 05/27/24 19:03 Temperature Pulse Rate 64 60 Respiratory Rate Blood Pressure 188/86 H Pulse Oximetry 99 100 Oxygen Delivery Method 05/27/24 19:30 05/27/24 19:31 05/27/24 19:31 Temperature Pulse Rate 56 L 56 L Respiratory Rate 24 Blood Pressure 181/79 H Pulse Oximetry 99 98 Oxygen Delivery Method MDM - Neuro Symptoms/Deficit <Bear Hankins DO - Last Filed: 05/30/24 07:12> Lab Data Attestation: I reviewed the patient's lab results. 05/27/24 16:35 05/27/24 16:35 Labs: Lab Results 05/27/24 Range/Units 16:35 WBC 5.3 (4.5-11.0) X10^3/uL RBC 4.35 (4.0-5.2) X10^6/uL Hgb 13.7 (12.0-16.0) g/dL Hct 41.4 (36-46) % MCV 95.0 (80-100) fL MCH 31.5 (26-34) PG MCHC 33.1 (30-36) % RDW 13.9 (11.6-14.8) % Plt Count 202 (150-400) X10^3/uL Neut % (Auto) 55.2 (50-75) % Lymph % (Auto) 29.8 (25-40) % [place] % (Auto) 10.0 (3-14) % Eos % (Auto) 3.9 (2-4) % Baso % (Auto) 1.1 (0-2) % Neut # (Auto) 2900 (2463-7745) /uL Lymph # (Auto) 1600 (2496-5440) /uL [place] # (Auto) 500 (0-900) /uL Eos # (Auto) 200 (0-450) /uL Baso # (Auto) 100 (0-100) /uL PT 15.0 H (9.4-12.5) SECONDS INR 1.3 (0.9-1.3) APTT 48 H (25.1-36.5) SECONDS Sodium 139 (137-145) mmol/L Potassium 3.6 (3.4-5.1) mmol/L Chloride 105 (98-107) mmol/L Carbon Dioxide 27 (22-32) mmol/L BUN 17 (7-17) mg/dL Creatinine 0.63 (0.52-1.04) mg/dL Estimated GFR > 60 (>60) mL/min BUN/Creatinine Ratio 27.0 H (6-22) Glucose 117 H (80-110) mg/dL Calcium 9.2 (8.4-10.2) mg/dL Magnesium 2.1 (1.6-2.3) mg/dL Total Bilirubin 1.0 (0.2-1.3) mg/dL AST 35 (14-36) IU/L ALT 25 (<35) IU/L Alkaline Phosphatase 56 (38-126) U/L Total Creatine Kinase 67 (30-135) U/L Troponin I < 0.012 (0.01-0.034) ng/mL Total Protein 7.5 (6.3-8.2) g/dL Albumin 4.5 (3.5-5.0) g/dL Globulin 3.0 (1.7-4.1) g/dL Albumin/Globulin Ratio 1.5 (1.0-2.8) Triglycerides 74 (35-150) mg/dL Cholesterol 184 (140-199) mg/dL LDL Cholesterol, Calc 60 (<100) mg/dL HDL Cholesterol 109 H (40-60) mg/dL Lipase 125 (23-300) U/L Urine Dip Bedside Urine Glucose Negative Bedside Urine Bilirubin - Negative Bedside Urine Ketone - Negative Urine Specific [place] 1.010 Bedside Urine Occult Blood - Negative Bedside Urine pH 6.0 Bedside Urine Protein - Negative Bedside Urine Urobilinogen - Negative Bedside Urine Nitrite - Negative Bedside Urine Leukocytes - Negative Esterase ECG Data Attestation: I personally reviewed and interpreted this ECG as follows: Interpretation: Sinus bradycardia Ventricular rate of 54 Normal axis Normal QRS Normal QTC No ST T wave changes MDM Narrative Medical decision making narrative: It is somewhat difficult to distinguish what symptoms are new today versus worsening today versus symptoms that have been present for the past several weeks/months. From what I understand the patient has had balance issues for several months which are not worse today. Coordination issues with writing with her left hand that have been present for the past several days. She has had what sounds like word finding issues for the past several weeks but that seems to have worsened today. Unsure the exact onset of the symptoms today. She has no other complaints today here in the emergency department. Has an NIH score of 0 however I can tell that the patient does seem to have to think about what she wants to say before she actually says it. Labs and EKG are unremarkable. CT scan of head and CTA of head and neck have been ordered as well. Care turned over to Dr. briggs the change of shift to follow-up and disposition. <Dana Briggs MD - Last Filed: 05/27/24 21:07> Lab Data Labs: Lab Results 05/27/24 Range/Units 16:35 WBC 5.3 (4.5-11.0) X10^3/uL RBC 4.35 (4.0-5.2) X10^6/uL Hgb 13.7 (12.0-16.0) g/dL Hct 41.4 (36-46) % MCV 95.0 (80-100) fL MCH 31.5 (26-34) PG MCHC 33.1 (30-36) % RDW 13.9 (11.6-14.8) % Plt Count 202 (150-400) X10^3/uL Neut % (Auto) 55.2 (50-75) % Lymph % (Auto) 29.8 (25-40) % [place] % (Auto) 10.0 (3-14) % Eos % (Auto) 3.9 (2-4) % Baso % (Auto) 1.1 (0-2) % Neut # (Auto) 2900 (1965-7400) /uL Lymph # (Auto) 1600 (4568-6238) /uL [place] # (Auto) 500 (0-900) /uL Eos # (Auto) 200 (0-450) /uL Baso # (Auto) 100 (0-100) /uL PT 15.0 H (9.4-12.5) SECONDS INR 1.3 (0.9-1.3) APTT 48 H (25.1-36.5) SECONDS Sodium 139 (137-145) mmol/L Potassium 3.6 (3.4-5.1) mmol/L Chloride 105 (98-107) mmol/L Carbon Dioxide 27 (22-32) mmol/L BUN 17 (7-17) mg/dL Creatinine 0.63 (0.52-1.04) mg/dL Estimated GFR > 60 (>60) mL/min BUN/Creatinine Ratio 27.0 H (6-22) Glucose 117 H (80-110) mg/dL Calcium 9.2 (8.4-10.2) mg/dL Magnesium 2.1 (1.6-2.3) mg/dL Total Bilirubin 1.0 (0.2-1.3) mg/dL AST 35 (14-36) IU/L ALT 25 (<35) IU/L Alkaline Phosphatase 56 (38-126) U/L Total Creatine Kinase 67 (30-135) U/L Troponin I < 0.012 (0.01-0.034) ng/mL Total Protein 7.5 (6.3-8.2) g/dL Albumin 4.5 (3.5-5.0) g/dL Globulin 3.0 (1.7-4.1) g/dL Albumin/Globulin Ratio 1.5 (1.0-2.8) Triglycerides 74 (35-150) mg/dL Cholesterol 184 (140-199) mg/dL LDL Cholesterol, Calc 60 (<100) mg/dL HDL Cholesterol 109 H (40-60) mg/dL Lipase 125 (23-300) U/L Urine Dip Bedside Urine Glucose Negative Bedside Urine Bilirubin - Negative Bedside Urine Ketone - Negative Urine Specific [place] 1.010 Bedside Urine Occult Blood - Negative Bedside Urine pH 6.0 Bedside Urine Protein - Negative Bedside Urine Urobilinogen - Negative Bedside Urine Nitrite - Negative Bedside Urine Leukocytes - Negative Esterase Imaging Data CT scan - head: Radiologist's Impression: PROCEDURE: CT HEAD/BRAIN WO CON INDICATIONS: Possible TIA TECHNIQUE: Noncontrast 4.5 mm thick angled axial sections acquired from the foramen magnum to the vertex, with coronal and sagittal reformats. For radiation dose reduction, the following was used: automated exposure control, adjustment of mA and/or kV according to patient size. COMPARISON: None. FINDINGS: Image quality: Diagnostic. CSF spaces: Basal cisterns are patent. No extra-axial fluid collections. The ventricles are symmetric in size and shape. Brain: No intracranial bleeds or masses. There is cerebral volume loss for age, with resultant ventricular and sulcal prominence. There are periventricular and deep white matter chronic small vessel ischemic changes. There is intracranial internal carotid artery atherosclerosis. Skull and face: Calvarium and visualized facial bones appear intact, without suspicious lesions. Sinuses: Visualized sinuses and mastoids are clear. IMPRESSION: 1. CT head without acute intracranial abnormalities or acute calvarial fractures. 2. Age-related senescent changes and sequela of chronic small vessel ischemic disease. Dictated by: Edenilson Sarkar M.D. on 05/27/2024 at 18:01 CT Angio head and neck: Radiologist's Impression: PROCEDURE: CT ANGIO HEAD AND NECK INDICATIONS: Possible TIA TECHNIQUE: After the administration of intravenous contrast, 1 mm thick sections acquired from the aortic arch through the [place] of [place]. 3-dimensional gvwecvp-cqodxxirl-kzpqahihtb (MIP) and/or volume rendering reformats were acquired of the central intracranial vasculature and neck separately. For radiation dose reduction, the following was used: automated exposure control, adjustment of mA and/or kV according to patient size. COMPARISON: [facility], CT, CT HEAD/BRAIN WO CON, 05/27/2024, 17:03. FINDINGS: Image quality: Diagnostic. BRAIN: CSF spaces: Ventricles are normal in size and shape. Basal cisterns are patent. No extra-axial fluid collections. Brain: No significant abnormality of the brain can be seen. Skull and face: Calvarium and facial bones appear intact, without suspicious lesions. Orbits appear normal. Sinuses: Sinuses and mastoids are clear. HEAD CT ANGIOGRAPHY: Anterior circulation: Intracranial internal carotid arteries are normal in size and flow. The flow within the paired anterior cerebral arteries is normal and symmetric. The flow within the middle cerebral arteries is normal and symmetric. The anterior communicating artery is seen. No aneurysms are seen. Posterior circulation: Visualized portions of the vertebral arteries demonstrate normal caliber, and join to form a normal appearing basilar artery. Flow within the posterior cerebral arteries is normal and symmetric. No aneurysms are seen. NECK CT ANGIOGRAPHY: Carotid system: The great vessels demonstrate a conventional anatomy as they arise from the aortic arch. The origins of the common carotid arteries appear patent. The common carotid arteries demonstrate normal caliber and courses. The bifurcation regions are both widely patent. The internal carotid arteries demonstrate normal calibers and courses. Posterior circulation: The origins of the vertebral arteries both appear widely patent. The more superior extracranial portions of both vertebral arteries also demonstrate normal courses and calibers. They join to form a normal appearing basilar artery. Soft tissues: Visualized neck soft tissues demonstrate no suspicious abnormalities. Bones: No suspicious bony lesions. Visualized cervical spine appears normally aligned. IMPRESSION: Negative CT angiogram of the intracranial and neck arterial vasculature for high-grade stenosis, occlusion, dissection and aneurysm. Multilevel cervical spondylosis. If there is persistent or high clinical suspicion for acute cerebrovascular ischemia/stroke, more sensitive evaluation with brain MRI can be considered. Any quantitative measurements of stenosis were performed using NASCET criteria. Dictated by: Edenilson Sarkar M.D. on 05/27/2024 at 17:54 MRI brain: Radiologist's Impression: PROCEDURE: MR HEAD/BRAIN WO/W CON INDICATIONS: acute neuro symptoms TECHNIQUE: Noncontrast axial T1 spin echo, axial T2 fast spin echo, sagittal and axial FLAIR, coronal T2 fast spin echo, axial gradient echo, axial diffusion and ADC through the brain. After the administration of contrast, axial and coronal and sagittal T1 spin echo with fat saturation through the brain. COMPARISON: [facility], CT, CT ANGIO HEAD AND NECK, 05/27/2024, 17:03. [facility], CT, CT HEAD/BRAIN WO CON, 05/27/2024, 17:03. FINDINGS: Image quality: Diagnostic CSF spaces: Basal cisterns are patent. No extra-axial fluid collections. Ventricles are normal in size and shape. Brain: No midline shift. No intracranial bleeds or masses. No abnormal intracranial enhancement. There is cerebral volume loss for age. There is periventricular white matter chronic small vessel ischemic change. The brainstem appears normal. Diffusion-weighted images demonstrates a 1.5 cm area of diffusion restriction abnormality and correlating low intensity region on the ADC map within the right basal ganglia. No chronic ischemic insults. Normal intravascular flow voids are present. Skull and face: Calvarial marrow is normal in signal. Orbits appear normal. Sinuses: Sinuses and mastoids appear clear. 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 However, there is somewhat mass like appearance of this lesion but no significant enhancement. A possible neoplastic process cannot be completely excluded such as lymphoma or glioblastoma given subtle hyperdensity seen on comparison noncontrast CT. No evidence for associated hemorrhage. Recommend short term follow up MRI in 2-4 weeks to document expected progression of infarction. Findings were discussed with Dr. Briggs at 1954 hrs. Dictated by: Edenilson Sarkar M.D. on 05/27/2024 at 19:33 [facility] Narrative Medical decision making narrative: It is somewhat difficult to distinguish what symptoms are new today versus worsening today versus symptoms that have been present for the past several weeks/months. From what I understand the patient has had balance issues for several months which are not worse today. Coordination issues with writing with her left hand that have been present for the past several days. She has had what sounds like word finding issues for the past several weeks but that seems to have worsened today. Unsure the exact onset of the symptoms today. She has no other complaints today here in the emergency department. Has an NIH score of 0 however I can tell that the patient does seem to have to think about what she wants to say before she actually says it. Labs and EKG are unremarkable. CT scan of head and CTA of head and neck have been ordered as well. Care turned over to Dr. briggs the change of shift to follow-up and disposition. 9pm care is assumed, patient is independently evaluated, studies and results reviewed MRI does show a 1.5 cm area of diffusion restriction likely representing acute park in the right basal ganglia which does correlate with her symptoms. Because there is a somewhat masslike appearance to the lesion possible neoplastic process was at least considered and radiologist is recommended repeat MRI in 2-4 weeks to help differentiate between acute stroke versus masslike lesion. In reviewing findings with the patient, her thinks she has been having progressive symptoms for a number of months. Patient describes 10 days of atrial fibrillation ending approximately May 11 for which she is now on Eliquis and has stopped her aspirin. She does report that she has been checking blood pressures regularly due to the recent AFib episode and typically is seeing numbers in the 120/60 range on her current doses of metoprolol. Finally she is currently on rosuvastatin for cholesterol. Patient is concerned that she will develop a UTI she has not had much water today. She has absolutely no symptoms of such. Urine dip is entirely unremarkable and results of such are shared with patient and her . We discussed hospitalization given the likely diagnosis of acute stroke. She believe she is scheduled for an upcoming echocardiogram given the recent AFib episode. She has a follow up appointment with her primary care physician on May 29. Blood pressures are controlled, she is on cholesterol medications, she has had additional cholesterol panel ordered today to make sure that she is at new goals, she is currently on Eliquis for anticoagulation she is not in atrial fibrillation she is able to swallow without difficulty and is not having other acute abnormalities that would require hospitalization. With shared decision-making, we opted to discharge her home knowing that outpatient follow up is already scheduled. We will give her copies of her CT scans and MRIs to share with her primary care physician. Questions are answered and patient is discharge Discharge Plan Departure Patient Disposition: Home Clinical Impression: Stroke Qualifiers: CVA mechanism: unspecified Qualified Code(s): I63.9 - Cerebral infarction, unspecified Instructions: DI for Stroke-Ischemic Activity Restrictions/Additional Instructions: Thank you for coming in today The CT scan and CT angiogram of your head and neck were unremarkable. The MRI of your brain shows a 1.5 cm area in the back part of your brain on the right side that is very likely a small stroke and the cause of your symptoms. This does fit with the fact that you had an episode of atrial fibrillation ended about 2 weeks ago concurrent with the approximate of time that you feel you been having your language and cognitive processing challenges. The radiologist has recommended that you have a repeat MRI of your brain in 2-4 weeks to document expected progression of infarction and make sure that there is not an alternate explanation for this finding on the MRI In the meantime, post stroke care includes: -anticoagulation, please do continue your Eliquis -Blood pressure control, you stated that your blood pressures have been running in the 120s over 60s. Please continue your blood pressure medication and continue checking numbers and follow up with your primary care physician -Cholesterol control and after a stroke the goals for LDL are lower. I did add a cholesterol screen to your blood work done in the ER [facility] and you or your primary doctor can call to get these results -echocardiogram, you have said that you do have this upcoming and symptoms starting around the time you had that extended period of atrial fibrillation strongly suggests an embolic stroke -you did have a swallow study in the emergency department and passed without difficulty We discussed keeping you in the hospital versus having you go home. As you are already doing all of the recommended care and have an appointment with your primary care doctor in 48 hours, together we decided that discharge home is safe. I have given you copies of the imaging studies to share with your primary care doctor. Specifically, review the MRI and ask her to schedule the follow up study If you find that you are getting worse or develop any new symptoms, please feel free to return to the emergency department for further evaluation. Prescriptions: No Action metoprolol tartrate 25 mg Tablet 25 mg PO BID hyoscyamine sulfate 0.125 mg Tablet, Sublingual 0.125 mg SUBLINGUAL BID-QID PRN (Reason: Abdominal spasm) pimecrolimus [Elidel] 1 % Cream 1 applic TOPICAL BID PRN (Reason: Eczema-Face) omeprazole 20 mg Capsule,Delayed Release(Dr/Ec) 20 mg PO DAILY PRN (Reason: Acid Reflux) aspirin 81 mg Tablet 81 mg PO DAILY clindamycin phosphate 1 % Solution 1 applic TOPICAL PRN PRN (Reason: Folliculitis) rosuvastatin 10 mg Tablet 10 mg PO DAILY estradiol [Vagifem] 10 mcg Tablet 10 mcg VAGINAL 2XW PreserVision AREDS-2 250-90-40-1 mg Capsule 1 tab PO QAM AND QHS IBgard 90 mg Capsule,Delayed,Extend.Release 90 mg PO BID Rx Instructions: 1-2 caps daily estradiol 10 mcg Insert 10 mcg VAGINAL 2XW tizanidine 2 mg tablet 2 mg PO 3XD fluconazole 150 mg tablet 150 mg PO Q3D betamethasone dipropionate 0.05 % cream 1 applic topical DAILY PRN Fish Oil 1,250 mg PO BID Calcium Citrate 133mg-Magnesium 133mg 133 mg PO TID cholecalciferol (vitamin D3) 75 mcg (3,000 unit) tablet 150 mcg PO DAILY Saccharomyces boulardii [Daily Probiotic (S. boulardii)] 250 mg capsule 250 mg PO DAILY Referrals: Renita Cervantes ARNP [Primary Care Provider] - Stand Alone Forms: Patient Portal/API ED Sign-out <Bear Hankins, - Last Filed: 05/30/24 07:12> Cosign ED Attending Cosignature Attestation: Dr Hankins Co-Sign Statement: I was available for consultation during this patient's emergency department visit. This chart is signed by myself for administrative purposes only. I did not have direct contact with this patient during this visit. They were seen independently by the APC.
[2024-05-27 17:11] LABS: Troponin I < 0.012 ng/mL (0.01-0.034)
--- NOTE | 2024-05-27 18:11 | DI.MRI.S_ITS ---
PROCEDURE: MR HEAD/BRAIN WO/W CON INDICATIONS: acute neuro symptoms TECHNIQUE: Noncontrast axial T1 spin echo, axial T2 fast spin echo, sagittal and axial FLAIR, coronal T2 fast spin echo, axial gradient echo, axial diffusion and ADC through the brain. After the administration of contrast, axial and coronal and sagittal T1 spin echo with fat saturation through the brain. COMPARISON: [facility], CT, CT ANGIO HEAD AND NECK, 05/27/2024, 17:03. [facility], CT, CT HEAD/BRAIN WO CON, 05/27/2024, 17:03. FINDINGS: Image quality: Diagnostic CSF spaces: Basal cisterns are patent. No extra-axial fluid collections. Ventricles are normal in size and shape. Brain: No midline shift. No intracranial bleeds or masses. No abnormal intracranial enhancement. There is cerebral volume loss for age. There is periventricular white matter chronic small vessel ischemic change. The brainstem appears normal. Diffusion-weighted images demonstrates a 1.5 cm area of diffusion restriction abnormality and correlating low intensity region on the ADC map within the right basal ganglia. No chronic ischemic insults. Normal intravascular flow voids are present. Skull and face: Calvarial marrow is normal in signal. Orbits appear normal. Sinuses: Sinuses and mastoids appear clear. 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 However, there is somewhat mass like appearance of this lesion but no significant enhancement. A possible neoplastic process cannot be completely excluded such as lymphoma or glioblastoma given subtle hyperdensity seen on comparison noncontrast CT. No evidence for associated hemorrhage. Recommend short term follow up MRI in 2-4 weeks to document expected progression of infarction. Findings were discussed with Dr. Streeter at 1954 hrs. Dictated by: Edenilson Sarkar M.D. on 05/27/2024 at 19:33 Approved by: Edenilson Sarkar M.D. on 05/27/2024 at 19:53
[2024-05-27 21:03] LABS: Cholesterol 184 mg/dL (140-199); HDL Cholesterol 109 mg/dL (40-60); LDL Cholesterol Calculated 60 mg/dL (<100); Triglycerides 74 mg/dL (35-150)
== END 2024-05-27 21:21 | disposition home or self-care (01) ==
PROVIDERS: Emergency Medicine; Emergency Provider Emergency Medicine; PCP Student in an Organized Health Care Education/Training Program
DX: I63.9 Cerebral infarction, unspecified (principal); R00.1 Bradycardia, unspecified; I48.91 Unspecified atrial fibrillation; Z79.01 Long term (current) use of anticoagulants; Z79.899 Other long term (current) drug therapy
CPT/HCPCS: 36415; 70450; 70496; 70498; 70553; 80053; 80061; 81003; 82550; 83690; 83735; 84484; 85025; 85610; 85730; 93005; 93010; 99284; Q9967

== ENCOUNTER 2024-06-17 12:11 | Emergency (ER) | payer MEDICARE, OTHER, SELFPAY ==
[2021-04-16 00:15] VITALS: BMI 31.7
[2024-06-17] VITALS (19 sets, daily range): BP systolic 101–186; BP diastolic 55–88; PULSE 50–70; RESP 16–27; TEMP 36.7; O2SAT 96–99; BMI 30.4
--- NOTE | 2024-06-17 13:20 | PC.NURSE ---
Pt and spouse report worsening weakness, word finding, slurred speech since prior ER visit in May. MRI scheduled for 2x weeks and spouse requests MRI be made sooner. Pt alert and oriented, generalized weakness.
--- NOTE | 2024-06-17 15:27 | ED_ITS ---
HPI - Neuro Symptoms/Deficit General Chief Complaint: Neuro Symptoms/Deficit Stated Complaint: Returning; Speech problems, Stroke concerns Time Seen by Provider: 06/17/24 15:17 Source: patient Mode of arrival: Ambulatory Limitations: no limitations History of Present Illness HPI Narrative: 88-year-old female history of paroxysmal atrial fibrillation on Eliquis, metoprolol and rosuvastatin. Patient has a history of reflux as well as chronic low back discomfort. Presented with progressive word-finding issues, possibly dragging her foot although it has been has not visualized it but hears it and they have noted that she has had increasing difficulty with her left hand her handwriting has worsened over time. Patient describes what sounds like expressive aphasia she knows what she wants to say but has trouble getting the words out. They notes symptoms seems to be worsening since she was seen here on the 27 of May. At that time MRI showed possible infarct versus malignant process and was recommended to have repeat MRI in 2-4 weeks. Patient has had occasional headache which he states resolved for quickly, denies any vision changes no chest pain, no shortness of breath, no palpitations, no abdominal back or flank pain, no nausea or vomiting. She denies any numbness or tingling of her extremities. She does not appreciate that her handwriting has been more difficult with her left hand she does not appreciate any clear weakness of her extremities states she was able to ambulate without much issue. She notes her metoprolol was increased by her INTERVENTIONIST as well as her statin. She continues to take her anticoagulation regularly. She has not had any falls. She notes no known drug allergies. No tobacco, has a glass of champagne nightly with cookies, no recreational drugs. Primary careis Renita Cervantes. She presents with her who notes that her symptoms seemed to have progressed slowly over time. On Anticoagulants: Yes (Eliquis) Related Data Home Medications Medication Instructions Recorded Confirmed aspirin 81 mg tablet 81 mg PO DAILY 04/16/21 08/01/23 clindamycin phosphate 1 % topical 1 applic topical PRN PRN 04/16/21 08/01/23 solution Folliculitis estradiol 10 mcg vaginal insert 10 mcg vaginal 2XW 04/16/21 08/01/23 estradiol 10 mcg vaginal tablet 10 mcg vaginal 2XW 04/16/21 08/01/23 (Vagifem) hyoscyamine sulfate 0.125 mg 0.125 mg sublingual BID-QID PRN 04/16/21 08/01/23 sublingual tablet Abdominal spasm metoprolol tartrate 25 mg tablet 25 mg PO BID 04/16/21 08/01/23 omeprazole 20 mg capsule,delayed 20 mg PO DAILY PRN Acid Reflux 04/16/21 08/01/23 release peppermint oil 90 mg 90 mg PO BID 04/16/21 08/01/23 capsule,delayed,extended release (IBgard) pimecrolimus 1 % topical cream 1 applic topical BID PRN 04/16/21 08/01/23 (Elidel) Eczema-Face rosuvastatin 10 mg tablet 10 mg PO DAILY 04/16/21 08/01/23 vit C 250 mg-vit E 90 mg-zinc 40 1 tab PO QAM AND QHS 04/16/21 08/01/23 mg-copper 1 [id number] capsule (PreserVision AREDS-2) Calcium Citrate 133mg-Magnesium 133 mg PO TID 03/28/23 08/01/23 133mg Fish Oil 1,250 mg PO BID 03/28/23 08/01/23 Saccharomyces boulardii 250 mg 250 mg PO DAILY 03/28/23 08/01/23 capsule (Daily Probiotic (S. boulardii)) betamethasone dipropionate 0.05 % 1 applic topical DAILY PRN 03/28/23 08/01/23 topical cream cholecalciferol (vitamin D3) 75 150 mcg PO DAILY 03/28/23 08/01/23 mcg (3,000 unit) tablet fluconazole 150 mg tablet 150 mg PO Q3D 06/20/23 08/01/23 tizanidine 2 mg tablet 2 mg PO 3XD 06/20/23 08/01/23 Allergies Allergy/AdvReac Type Severity Reaction Status Date / Time No Known Drug Allergies Allergy Verified 06/17/24 12:20 Review of Systems Review of Systems ROS Unobtainable: All systems reviewed & are unremarkable except as noted in HPI and below Hematologic/Lymphatic On Anticoagulants: Yes (Eliquis) Patient History Medical History Left leg pain Greater trochanteric bursitis of both hips Low back pain Lumbar radiculopathy GERD (gastroesophageal reflux disease) Paroxysmal SVT (supraventricular tachycardia) Hyperlipidemia Surgical History History of hysterectomy History of bunionectomy History of appendectomy History of colonoscopy with polypectomy Family History Mother Bladder cancer Congestive heart failure Father Diabetes mellitus Heart disease Social History household members: spouse Smoking Status: Never smoker Smoking Status: Never smoker alcohol intake frequency: 0-2 drinks per day Alcohol type: wine Substance Use Type: does not use Exam Narrative Exam Narrative: GEN: well nourished, well appearing female, alert and oriented x 3, patient appears to be in my distress. HEENT: Atraumatic, pupils are equal round reactive to light, extraocular movements are intact, nares are clear, there is no conjunctival pallor. Throat is clear without any exudates, erythema, tonsillar enlargement or uvular deviation, no facial droop HEART: Regular rate and rhythm without murmur, clicks, rubs. No carotid bruits, pulses are equal in upper and lower extremities LUNGS:Lungs clear to auscultation, no wheezes, rales, crackles, chest moves symmetrically ABD:bowel sounds normal, soft, non-tender, no guarding, rebound, rigidity, no masses noted, no hepatosplenomegaly MSCL: Non-tender, no muscle atrophy, muscles strength 5/5 upper and lower extremities, full range of motion, normal gait NEURO:CN 2-12 intact, sensation normal, reflexes 2/4 upper and lower extremities. finger nose finger test normal, heel galo test normal. Initial Vital Signs Initial Vital Signs: Vital Signs Temperature 98.0 F 06/17/24 12:15 Pulse Rate 56 L 06/17/24 12:15 Respiratory Rate 18 06/17/24 12:15 Blood Pressure 186/88 H 06/17/24 12:15 Pulse Oximetry 99 06/17/24 12:15 Oxygen Delivery Method Room Air 06/17/24 12:15 Scores NIH Stroke Scale Level of Conciousness: Alert, keenly responsive Ask month/age: Answers both questions correctly. Open/close eyes, close hand: Performs both tasks correctly Best gaze horizontal: Normal Visual gutierrez: No visual loss Facial palsy: Normal symetrical movement Left arm drift: No drift for full 10 sec Right arm drift: No drift for full 10 sec Left leg drift: No drift for full 5 sec Right leg drift: No drift for full 5 sec Limb ataxia: Absent Sensory on face/arms/legs: Normal, no sensory loss Best language: No aphasia, normal Dysarthria: Normal Extinction or inattention: No abnormality Total NIH Stroke scale score: 0 Course Orders Ordered: ED Orders 06/17/24 15:41 MR head/brain wo/w con Stat 06/17/24 15:52 BMP [Basic Metabolic Panel] Stat CBC Auto Diff [Complete Blood Count AUTO DIFF] Stat 06/17/24 19:16 CT chest abd pel w con Stat Vital Signs Vital signs: Vital Signs - 8 hr 06/17/24 12:15 06/17/24 12:52 06/17/24 13:00 Temperature 98.0 F Pulse Rate 56 L 52 L Respiratory Rate 18 16 Blood Pressure 186/88 H 146/71 H Pulse Oximetry 99 99 Oxygen Delivery Method Room Air 06/17/24 13:00 06/17/24 13:30 06/17/24 13:30 Temperature Pulse Rate 52 L 52 L Respiratory Rate 19 17 Blood Pressure 133/62 Pulse Oximetry 97 97 Oxygen Delivery Method Room Air 06/17/24 14:00 06/17/24 14:30 06/17/24 15:00 Temperature Pulse Rate 50 L 55 L 54 L Respiratory Rate 20 24 Blood Pressure Pulse Oximetry 98 98 98 Oxygen Delivery Method Room Air 06/17/24 15:30 Temperature Pulse Rate 57 L Respiratory Rate 24 Blood Pressure Pulse Oximetry 98 Oxygen Delivery Method Room Air MDM - Neuro Symptoms/Deficit Lab Data 06/17/24 15:52 06/17/24 15:52 Labs: Lab Results 06/17/24 Range/Units 15:52 WBC 5.1 (4.5-11.0) X10^3/uL RBC 4.08 (4.0-5.2) X10^6/uL Hgb 12.9 (12.0-16.0) g/dL Hct 38.4 (36-46) % MCV 94.1 (80-100) fL MCH 31.6 (26-34) PG MCHC 33.5 (30-36) % RDW 13.8 (11.6-14.8) % Plt Count 197 (150-400) X10^3/uL Neut % (Auto) 57.5 (50-75) % Lymph % (Auto) 30.0 (25-40) % Sevier % (Auto) 8.2 (3-14) % Eos % (Auto) 3.6 (2-4) % Baso % (Auto) 0.7 (0-2) % Neut # (Auto) 2900 (6672-7065) /uL Lymph # (Auto) 1500 (5175-8558) /uL Sevier # (Auto) 400 (0-900) /uL Eos # (Auto) 200 (0-450) /uL Baso # (Auto) 0 (0-100) /uL Sodium 138 (137-145) mmol/L Potassium 3.7 (3.4-5.1) mmol/L Chloride 108 H (98-107) mmol/L Carbon Dioxide 28 (22-32) mmol/L BUN 14 (7-17) mg/dL Creatinine 0.60 (0.52-1.04) mg/dL Estimated GFR > 60 (>60) mL/min BUN/Creatinine Ratio 23.3 H (6-22) Glucose 90 (80-110) mg/dL Calcium 9.0 (8.4-10.2) mg/dL Urine Dip Bedside Urine Glucose Negative Bedside Urine Bilirubin - Negative Bedside Urine Ketone - Negative Urine Specific Melville 1.01 Bedside Urine Occult Blood - Negative Bedside Urine pH 6.0 Bedside Urine Protein - Negative Bedside Urine Urobilinogen - Negative Bedside Urine Nitrite - Negative Bedside Urine Leukocytes - Negative Esterase Imaging Data MR brain w/ and w/o: Radiologist's Impression: Hui Jimenez??78??F??1945 ? Allergy/Adv: No Known Drug Allergies (More??) Close Brain MRI (Signed) Cassy Banuelos - 06/17/24 Brain MRI (Signed) Edenilson Sarkar - 05/27/24 Head/Neck CTA (Signed) Edenilson Sarkar - 05/27/[address] (Signed) Edenilson Sarkar - 05/27/24 Injection Lumbar, Sacrum (Signed) Valentín Laureano - 04/05/23 Lumbar Spine MRI (Signed) Ale Walker - 05/29/22 PFT Result 06/09/21 Myocardial Perfusion Scan Nuc Med (Signed) Ana Britt - 04/15/21 Myocardial Perfusion Scan Nuc Med (Cancelled) 04/15/21 Telemetry Strips 04/15/21 Chest X-Ray (Signed) Deepali Kuhn - 04/15/21 Launch?Image [address] [address] Magnetic Resonance Report Signed Patient: Hui Jimenez MR#: [id number] : 1945 Acct:[id number] Age/Sex: 78 / F Date of Service: 06/17/24 Loc: ED Accession Number: [id number] Procedure: MR head/brain wo/w con Ordering Provider: Arin Ortiz D.O. PROCEDURE: MR HEAD/BRAIN WO/W CON INDICATIONS: expressive aphasia, trouble w/ left hand, cva vs neoplasm TECHNIQUE: Noncontrast axial T1 spin echo, axial T2 fast spin echo, sagittal and axial FLAIR, coronal T2 fast spin echo, axial gradient echo, axial diffusion and ADC through the brain. After the administration of contrast, axial and coronal and sagittal 3D VIBE or T1 spin echo with fat saturation through the brain. COMPARISON: [facility], , MR HEAD/BRAIN WO/W CON, 05/27/2024, 18:17. FINDINGS: Image quality: Diagnostic CSF Spaces: Basal cisterns are patent. No extra-axial fluid collections. Ventricles are normal in size and shape. Brain: No midline shift. Mild diffuse cerebral volume loss. There is right basal ganglion T2/FLAIR hyperintense mass measuring up to 1.7 cm (05/26). This finding previously measures up to 1.5 cm on MRI 05/27/2024. As before, it demonstrates restricted diffusion with corresponding hypointensity on ADC. There is suggestion of subtle enhancement within this region on postcontrast series 13, images 69 to 78. Normal intravascular flow voids are present. Skull and face: Calvarial marrow is normal in signal. Orbits appear normal. Sinuses: Sinuses and mastoids appear clear. IMPRESSION: Compared to prior MRI 05/27/2024, increased size of right basal ganglion T2/FLAIR hyperintense focus with associated diffusion restriction and new mild enhancement. Finding is favored to represent mass concerning for malignancy, which in could include primary SUPERVISOR TELEVISION CHASSIS REPAIR process such as lymphoma or a glioblastoma versus metastasis. Approved by: Cassy Banuelos M.D.,Ph.D. on 06/17/2024 at 18:38 MDM Narrative Medical decision making narrative: 78-year-old female with persistent speech issues some symptoms seem consistent with stroke but patient had an MR on 05/27/2024 for similar symptoms had infarct versus possible malignancy or neoplasm. Was recommended repeat MR and 2-4 weeks. Patient and family have noted some mild but progressive symptoms since then patient has not had any major changes today. She continues to be anticoagulants Eliquis in his on a statin as well as beta kelly. Patient and I discussed we will obtain MR with and without contrast after discussion with Radiology about best choice for imaging. We will hold off on CT brain there is possibly bleed but symptoms are very mild the same as her priors she has had occasional headaches but not severe. Labs were also obtained these show. White count, hemoglobin and platelets. Chloride 108, electrolytes are otherwise appropriate glucose is 90. Repeat brain MR increased size of right basal ganglion hyperintense focus with the associated diffuse restriction and new mild enhancement finding is favored to represent mass concerning for malignancy which could include primary SUPERVISOR TELEVISION CHASSIS REPAIR process such as lymphoma or glioblastoma versus metastases. No midline shift, 1.7 cm was previously 1.5 cm. Discussed with patient and family MR is concerning for malignancy over infarct. Plan to set up follow up with Oncology. Patient's symptoms are mild her neurologic exam is normal today felt appropriate for discharge home. Call out to oncology, spoke with Dr. Bennett who is on-call for the group at [facility]. Asked if patient is willing to stay for CT chest abdomen pelvis would be helpful we will be happy to see patient and refer to surgery or possibly biopsy depending on location of patient's lesion. They are happy to follow up with the patient. Family notes patient's son of glioblastoma. Reviewed findings with patients, they are willing to stay for CT chest abdomen pelvis. Signed out to Dr. Sood while awaiting results of this scan. Plan at this time is follow up with Oncology, patient's family is to call primary care to help with referral process and they have been given contact for Oncology to call tomorrow. Patient demographics were sent to oncology. CT chest/abd/pelvis: shows no acute process. Discharge Plan Departure Patient Disposition: Home Clinical Impression: Brain mass Activity Restrictions/Additional Instructions: Your workup today shows slight increase in size from 1.5-1.7 cm on your MRI findings are most concerning for brain mass/malignancy. Please follow up with Oncology I spoke with Dr. Bennett, call tomorrow to set up follow-up. I spoke with the oncologist on today but also call your primary care physician to help set up a referral. You can continue your current medications as prescribed. Please return for severe headaches, sudden mentation changes, worsening symptoms, new weakness difficulty with movement or speech changes, seizure activity or other new or concerning changes. Prescriptions: No Action metoprolol tartrate 25 mg Tablet 25 mg PO BID hyoscyamine sulfate 0.125 mg Tablet, Sublingual 0.125 mg SUBLINGUAL BID-QID PRN (Reason: Abdominal spasm) pimecrolimus [Elidel] 1 % Cream 1 applic TOPICAL BID PRN (Reason: Eczema-Face) omeprazole 20 mg Capsule,Delayed Release(Dr/Ec) 20 mg PO DAILY PRN (Reason: Acid Reflux) aspirin 81 mg Tablet 81 mg PO DAILY clindamycin phosphate 1 % Solution 1 applic TOPICAL PRN PRN (Reason: Folliculitis) rosuvastatin 10 mg Tablet 10 mg PO DAILY estradiol [Vagifem] 10 mcg Tablet 10 mcg VAGINAL 2XW PreserVision AREDS-2 250-90-40-1 mg Capsule 1 tab PO QAM AND QHS IBgard 90 mg Capsule,Delayed,Extend.Release 90 mg PO BID Rx Instructions: 1-2 caps daily estradiol 10 mcg Insert 10 mcg VAGINAL 2XW tizanidine 2 mg tablet 2 mg PO 3XD fluconazole 150 mg tablet 150 mg PO Q3D betamethasone dipropionate 0.05 % cream 1 applic topical DAILY PRN Fish Oil 1,250 mg PO BID Calcium Citrate 133mg-Magnesium 133mg 133 mg PO TID cholecalciferol (vitamin D3) 75 mcg (3,000 unit) tablet 150 mcg PO DAILY Saccharomyces boulardii [Daily Probiotic (S. boulardii)] 250 mg capsule 250 mg PO DAILY Referrals: Renita Cervantes ARNP [Primary Care Provider] - Marion Bennett MD [Non-Staff] - Stand Alone Forms: Patient Portal/API
--- NOTE | 2024-06-17 15:41 | DI.MRI.S_ITS ---
PROCEDURE: MR HEAD/BRAIN WO/W CON INDICATIONS: expressive aphasia, trouble w/ left hand, cva vs neoplasm TECHNIQUE: Noncontrast axial T1 spin echo, axial T2 fast spin echo, sagittal and axial FLAIR, coronal T2 fast spin echo, axial gradient echo, axial diffusion and ADC through the brain. After the administration of contrast, axial and coronal and sagittal 3D VIBE or T1 spin echo with fat saturation through the brain. COMPARISON: [facility], MR, MR HEAD/BRAIN WO/W CON, 05/27/2024, 18:17. FINDINGS: Image quality: Diagnostic CSF Spaces: Basal cisterns are patent. No extra-axial fluid collections. Ventricles are normal in size and shape. Brain: No midline shift. Mild diffuse cerebral volume loss. There is right basal ganglion T2/FLAIR hyperintense mass measuring up to 1.7 cm (05/26). This finding previously measures up to 1.5 cm on MRI 05/27/2024. As before, it demonstrates restricted diffusion with corresponding hypointensity on ADC. There is suggestion of subtle enhancement within this region on postcontrast series 13, images 69 to 78. Normal intravascular flow voids are present. Skull and face: Calvarial marrow is normal in signal. Orbits appear normal. Sinuses: Sinuses and mastoids appear clear. IMPRESSION: Compared to prior MRI 05/27/2024, increased size of right basal ganglion T2/FLAIR hyperintense focus with associated diffusion restriction and new mild enhancement. Finding is favored to represent mass concerning for malignancy, which in could include primary EDUCATION PROGRAM SPECIALIST process such as lymphoma or a glioblastoma versus metastasis. Approved by: Cassy Banuelos M.D.,Ph.D. on 06/17/2024 at 18:38
[2024-06-17 16:03] LABS: Add Manual Diff / Slide Review NO; Basophils Absolute Auto 0 /uL (0-100); Basophils Percent Auto 0.7 % (0-2); Eosinophils Absolute Auto 200 /uL (0-450); Eosinophils Percent Auto 3.6 % (2-4); Hematocrit 38.4 % (36-46); Hemoglobin 12.9 g/dL (12.0-16.0); Lymphocytes Absolute Auto 1500 /uL (1100-4500); Mean Corpuscular HGB Conc 33.5 % (30-36); Mean Corpuscular Hemoglobin 31.6 PG (26-34); Mean Corpuscular Volume 94.1 fL (80-100); Monocytes Absolute Auto 400 /uL (0-900); Monocytes Percent Auto 8.2 % (3-14); Neutrophils Absolute Auto 2900 /uL (1500-7000); Neutrophils Percent Auto 57.5 % (50-75); Platelet Count 197 X10^3/uL (150-400); Red Blood Cell Count 4.08 X10^6/uL (4.0-5.2); Red Cell Distribution Width 13.8 % (11.6-14.8); White Blood Cell Count 5.1 X10^3/uL (4.5-11.0)
[2024-06-17 16:24] LABS: BUN Creatinine Ratio 23.3 (6-22); Blood Urea Nitrogen 14 mg/dL (7-17); Carbon Dioxide 28 mmol/L (22-32); Chloride 108 mmol/L (98-107); Estimated Glomerular Filt Rate > 60 mL/min (>60); Glucose 90 mg/dL (80-110); HEMOLYSIS < 15 (0-50); Potassium 3.7 mmol/L (3.4-5.1); Sodium 138 mmol/L (137-145)
--- NOTE | 2024-06-17 19:16 | DI.CT.S_ITS ---
PROCEDURE: CT CHEST ABD PEL W CON INDICATIONS: brain mass, eval for potential source TECHNIQUE: After the administration of intravenous contrast, 5 mm thick sections acquired from the lung apices to the symphysis. 5 mm coronal and sagittal reformats were performed, with additional 7 mm MIP reformats through the lungs. For radiation dose reduction, the following was used: automated exposure control, adjustment of mA and/or kV according to patient size. COMPARISON: None. FINDINGS: Image quality: Excellent. CHEST: Lower Neck: No enlarged lymph nodes. Thyroid: No thyroid nodules which require sonographic follow up, per consensus guidelines. Axillae: No enlarged lymph nodes. Chest Wall: Unremarkable. Lungs and Pleura: No pneumothorax or pleural effusions. No consolidation or suspicious nodules. Heart: Heart size is normal. No pericardial effusion. Thoracic Vessels: The aorta and pulmonary arteries demonstrate normal size. Mediastinum and Jenna: No enlarged lymph nodes. Esophagus: No wall thickening. Small to moderate-sized hiatal hernia. ABDOMEN: Liver: No solid mass. Tiny hypodense focus. Likely a benign cyst or hemangioma. Gallbladder: No radiopaque gallstones or wall thickening. Biliary ducts: No biliary dilation. Pancreas: No ductal dilation. Spleen: Size is within normal limits. Probable small cysts or hemangioma. Adrenal Glands: No adrenal nodules. Kidneys and Ureters: No hydronephrosis. No solid mass. No complex renal cystic lesion which requires follow up. Stomach and Bowel: Normal colonic caliber, without significant wall thickening. Diverticulosis. The appendix is not identified. Peritoneum: No abnormal intraperitoneal fluid. No free air. Ventral Wall: No significant ventral hernia. Abdominal Nodes: No retroperitoneal or mesenteric adenopathy by size criteria. Vessels: Aorta and inferior vena cava are normal in size. PELVIS: Pelvic Organs: Uterus is absent. Bladder: No bladder wall thickening, accounting for underdistention. Pelvic Nodes: No enlarged lymph nodes. Miscellaneous: No inguinal hernias are seen. Bones: No aggressive osseous abnormality. Multilevel DDD. IMPRESSION: No mass or adenopathy. No metastatic disease seen. Dictated by: Coy Luna M.D. on 06/17/2024 at 20:03 Approved by: Coy Luna M.D. on 06/17/2024 at 20:09
== END 2024-06-17 20:27 | disposition home or self-care (01) ==
PROVIDERS: Emergency Medicine; Emergency Provider Emergency Medicine; PCP Student in an Organized Health Care Education/Training Program
DX: G93.89 Other specified disorders of brain (principal); M54.50 Low back pain, unspecified; I48.20 Chronic atrial fibrillation, unspecified; Z79.01 Long term (current) use of anticoagulants; R29.700 NIHSS score 0
CPT/HCPCS: 36415; 70553; 71260; 74177; 80048; 81003; 85025; 99284; A9579; Q9967

== ENCOUNTER → 2024-06-19 09:38 | Outpatient (CLI) | payer MEDICARE, OTHER, SELFPAY ==
[2021-04-16 00:15] VITALS: BMI 31.7
--- NOTE | 2024-06-19 09:42 | DI.RAD.S_ITS ---
PROCEDURE: FL BARIUM SWALLOW W SPEECH INDICATIONS: CEREBROVASCULAR ACCIDENT COMPARISON: None. TECHNIQUE: Examination was conducted in conjunction with speech pathology per standard protocol. In the lateral projection, filming was performed of the patient swallowing. AP projection filming may also be performed with patient swallowing. COMPARISON: FINDINGS: Function: The oral preparatory phase appears normal, with proper containment. The subsequent oral propulsive phase, pharyngeal phase, and esophageal phase of swallowing also appear normal with all proffered substances. No laryngotracheal penetration or aspiration. No pathologic vallecular pooling. Morphology: No cricopharyngeal bar is identified. No cervical esophageal webs. No Zenker's diverticulum. No strictures. Moderate size hiatal hernia is seen. Patient's reported Schatzki's ring is not definitively seen on this study. IMPRESSION: Moderate size hiatal hernia. No definite Schatzki's ring is seen on this study. No aspiration or penetration is noted during swallowing. Dictated by: Mateus Joya M.D. on 06/19/2024 at 14:00 Approved by: Mateus Joya M.D. on 06/19/2024 at 14:02
--- NOTE | 2024-06-19 13:45 | ST.SWALLOW ---
Visit Care Team Role Provider Type AYDIN Everett Attending Provider Non-Staff Primary Care Provider Referring Provider Specialty: Dermatology Address: [address] [place] [address], [id number], [place], [address] Email: Modified Barium Swallow Study [employer] Modified Barium Swallow Study Start: 06/19/24 12:14 Freq: Status: Active Protocol: Document 06/19/24 12:14 LNK (Rec: 06/19/24 13:45 [id number]) Modified Barium Swallow Study Total Time Visit Start Time 10:00 Visit Stop Time 10:40 Total Visit Minutes 40 Referral Referring Physician AYDIN Everett Reason for Referral dysphagia Setting Setting Outpatient Care Patient Information Identification Type Name,Date of Patient History Pt was seen for Modified barium Swallow Study secondary to increased difficulty with swallowing. Pt reported that sometimes it feels like her throat is swollen. She added that she has choked on crumbs. Pt also noted that she has started to drool om her left side more often. Pt noted that she has a PMH of GERD, a Shatzke's ring and hiatal hernia. Recently she had been experiencing stroke- like symptoms and was seen in the ED on 05/27/24. An MRI at the time indicated 1.5 cm area of diffusion restriction abnormality with correlating low signal on ADC map within the right basal ganglia. A repeat MRI on 06/17/24 indicated slight increase in size from 1 .5-1.7 cm ... findings are most concerning for brain mass /malignancy. Pt has a neurology appointment scheduled in September. Subjective Observations Pt was seated in the fluoroscopy chair with directions and procedures described for her. She indicated she understood and agreed to proceed. Patient Positioning Position View Lat-A/P Imaging Lateral View Textures Administered Trials Presented Thin Liquid via Spoon (IDDSI 0 ),Extremely Thick Liquid via Spoon (IDDSI 4),Regular (IDDSI 7) Barium Tablet Yes The IDDSI Framework Protocol: IDDSI.1 Oral Impairment Source: The Modified Barium Swallow Impairment Profile (MBSImP??) Lip Closure Interlabial escape; no progression to anterior lip Tongue Control During Bolus Hold Cohesive bolus between tongue to palatal seal Bolus Preparation/Mastication Timely & efficient chewing & mashing Bolus Transport/Lingual Motion Delayed initiation of tongue motion Oral Residue Trace residue lining oral structures,Residue collection on oral structures Location Tongue,Lateral sulci Initiation of Pharyngeal Swallow Bolus head at pyriforms Additional Oral Impairment Observations *OME and DKS were observed to be WFL. Slight asymmetry of labial ROM *Dentition natural and in good hygiene *Mastication observed with rotary chew pattern. *Good bolus formation, control and AP transition. Pharyngeal Impairment Source: The Modified Barium Swallow Impairment Profile (MBSImP??) Soft Palate Elevation No bolus between soft palate & pharyngeal wall Laryngeal Elevation Part.sup.move.thyroid cart/ part.approx.arytenoids to epiglot.petiole Anterior Hyoid Excursion No anterior movement Epiglottic Movement No inversion Laryngeal Vestibular Closure Incomplete; narrow column air/ contrast in laryngeal vestibule Pharyngeal Stripping Wave Present - diminished Pharyngoesophageal Segment Opening Complete distention & complete duration; no obstruction of flow Tongue Base Retraction Wide column of contrast/air betwn tongue base & post. pharyngeal wall Pharyngeal Residue Collection of residue within/ on pharyngeal structures Location Diffuse (>3 areas) Additional Pharyngeal Impairment *Weak tongue base retraction Observations with reduced hyolaryngeal elevation and movement. *Inconsistent epiglottic inversion varied from no inversion (liquids) to horizontal position with epiglottis against posterior pharyngeal wall (semi-solid and solids) *Laryngeal penetration of thin liquid x4 with laryngeal residue above the folds. Unable to clear with throat clear/cough * Minimal stripping of posterior pharyngeal wall, decreased bolus control through pharynx *Moderate pharyngeal residue observed post swallow in valeculla, pyriform sinuses and posterior pharyngeal wall *No tracheal aspiration observed A/P View Textures Administered Trials Presented Thin Liquid via Spoon (IDDSI 0 ),Regular (IDDSI 7) The IDDSI Framework Protocol: IDDSI.1 A/P View Observations Pharyngeal Contraction Complete Esophageal Clearance Upright Position Esophageal retention Vocal Fold Function Good Esophageal Function Slowed Clearing,Poor Motility, Reverse Peristalsis Additional A-P Observations *Slow motility of esophagus *Reverse peristalsis *Esophageal clearance to stomach with several swallows of water *Large hiatal hernia *Tablet slow to clear to stomach Clinical Impressions Dysphagia Type Pharyngeal,Esophageal Findings *Moderate pharyngeal dysphagia ( see notes above in Additional Pharyngeal observations) *Esophageal dysmotility with reverse peristalsis (see AP observations above) *Hiatal hernia Rehabilitation Potential Good Patient Appropriate for Therapy Yes: Cognition, Aphasia, Lingual base strengthening Recommendations Diet Comments No diet change was recommended Treatment Plan Therapy Recommendations Outpatient Speech Therapy Recommended Referrals Neurology,GI Consult Additional Recommended Referrals Speech Therapy for aphasia, cognitive decline and tongue base strengthening
== END ==
PROVIDERS: PCP Student in an Organized Health Care Education/Training Program; Referring Provider Student in an Organized Health Care Education/Training Program; Visit Provider Student in an Organized Health Care Education/Training Program
DX: I63.9 Cerebral infarction, unspecified (principal); K44.9 Diaphragmatic hernia without obstruction or gangrene
CPT/HCPCS: 74230; 92526

== ENCOUNTER → 2024-08-22 16:02 | Outpatient (ROUT) | payer MEDICARE, OTHER, SELFPAY ==
[2021-04-16 00:15] VITALS: BMI 31.7
[2024-08-22 16:31] LABS: Appearance Urine UA CLOUDY; Bilirubin Urine UA NEGATIVE (NEGATIVE); Color Urine UA YELLOW; Glucose Urine UA NEGATIVE (Negative); Ketones Urine UA NEGATIVE (NEGATIVE); Leukocyte Esterase Urine UA 2+ (NEGATIVE); Nitrite Urine UA POSITIVE (Negative); Occult Blood Urine UA 2+ (Negative); Protein Urine UA NEGATIVE (Negative); Urobilinogen Urine UA 0.2 E.U./dL (0.2)
[2024-08-22 17:25] LABS: Bacteria Urine Many (>30); Culture Indicated Urine Specimen Cultured; RBC Urine 1-5/HPF (0-5/HPF); Squamous Epithelial Cell Urine None Seen (0-5/HPF); Urine Volume 10mL (spun); WBC Urine >100/HPF (0-5/HPF)
== END ==
PROVIDERS: PCP Student in an Organized Health Care Education/Training Program; Visit Provider Internal Medicine
DX: N39.0 Urinary tract infection, site not specified (principal)
CPT/HCPCS: 81001; 87077; 87086

== ENCOUNTER → 2024-09-04 15:54 | Outpatient (ROUT) | payer MEDICARE, OTHER, SELFPAY ==
[2021-04-16 00:15] VITALS: BMI 31.7
[2024-09-04 16:04] LABS: Add Manual Diff / Slide Review NO; Basophils Absolute Auto 0 /uL (0-100); Basophils Percent Auto 0.3 % (0-2); Eosinophils Absolute Auto 0 /uL (0-450); Eosinophils Percent Auto 0.1 % (2-4); Hematocrit 42.8 % (36-46); Hemoglobin 14.3 g/dL (12.0-16.0); Lymphocytes Absolute Auto 700 /uL (1100-4500); Lymphocytes Percent Auto 9.6 % (25-40); Mean Corpuscular HGB Conc 33.3 % (30-36); Mean Corpuscular Hemoglobin 32.4 PG (26-34); Mean Corpuscular Volume 97.5 fL (80-100); Monocytes Absolute Auto 200 /uL (0-900); Monocytes Percent Auto 2.5 % (3-14); Neutrophils Absolute Auto 6200 /uL (1500-7000); Neutrophils Percent Auto 87.5 % (50-75); Platelet Count 245 X10^3/uL (150-400); Red Cell Distribution Width 16.3 % (11.6-14.8); White Blood Cell Count 7.1 X10^3/uL (4.5-11.0)
== END ==
PROVIDERS: PCP Student in an Organized Health Care Education/Training Program; Visit Provider Registered Nurse
DX: C71.9 Malignant neoplasm of brain, unspecified (principal)
CPT/HCPCS: 85025

== ENCOUNTER → 2024-09-20 14:42 | Outpatient (ROUT) | payer MEDICARE, OTHER, SELFPAY ==
[2021-04-16 00:15] VITALS: BMI 31.7
[2024-09-20 14:51] LABS: Add Manual Diff / Slide Review NO; Basophils Absolute Auto 0 /uL (0-100); Basophils Percent Auto 0.2 % (0-2); Eosinophils Absolute Auto 0 /uL (0-450); Eosinophils Percent Auto 0.1 % (2-4); Hematocrit 41.5 % (36-46); Hemoglobin 13.9 g/dL (12.0-16.0); Lymphocytes Absolute Auto 500 /uL (1100-4500); Lymphocytes Percent Auto 6.7 % (25-40); Mean Corpuscular HGB Conc 33.6 % (30-36); Mean Corpuscular Hemoglobin 33.2 PG (26-34); Mean Corpuscular Volume 98.6 fL (80-100); Monocytes Absolute Auto 100 /uL (0-900); Monocytes Percent Auto 1.4 % (3-14); Neutrophils Absolute Auto 7200 /uL (1500-7000); Neutrophils Percent Auto 91.6 % (50-75); Platelet Count 208 X10^3/uL (150-400); Red Blood Cell Count 4.21 X10^6/uL (4.0-5.2); Red Cell Distribution Width 16.6 % (11.6-14.8); White Blood Cell Count 7.9 X10^3/uL (4.5-11.0)
[2024-09-20 15:01] LABS: Alanine Aminotransferase 101 IU/L (<35); Albumin 3.9 g/dL (3.5-5.0); Albumin Globulin Ratio 1.6 (1.0-2.8); Alkaline Phosphatase 42 U/L (38-126); Aspartate Aminotransferase 46 IU/L (14-36); BUN Creatinine Ratio 35.8 (6-22); Bilirubin Total 0.8 mg/dL (0.2-1.3); Blood Urea Nitrogen 24 mg/dL (7-17); Calcium 9.3 mg/dL (8.4-10.2); Carbon Dioxide 26 mmol/L (22-32); Chloride 101 mmol/L (98-107); Estimated Glomerular Filt Rate > 60 mL/min (>60); Globulin 2.4 g/dL (1.7-4.1); Glucose 133 mg/dL (80-110); HEMOLYSIS < 15 (0-50); Sodium 132 mmol/L (137-145); Total Protein 6.3 g/dL (6.3-8.2)
== END ==
PROVIDERS: PCP Student in an Organized Health Care Education/Training Program; Visit Provider Registered Nurse
DX: C71.9 Malignant neoplasm of brain, unspecified (principal)
CPT/HCPCS: 80053; 85025

== ENCOUNTER → 2024-09-27 17:11 | Outpatient (ROUT) | payer MEDICARE, OTHER, SELFPAY ==
[2021-04-16 00:15] VITALS: BMI 31.7
[2024-09-27 17:30] LABS: Alanine Aminotransferase 105 IU/L (<35); Albumin 3.5 g/dL (3.5-5.0); Albumin Globulin Ratio 1.3 (1.0-2.8); Alkaline Phosphatase 46 U/L (38-126); Aspartate Aminotransferase 47 IU/L (14-36); BUN Creatinine Ratio 37.1 (6-22); Bilirubin Total 0.6 mg/dL (0.2-1.3); Blood Urea Nitrogen 26 mg/dL (7-17); Calcium 9.2 mg/dL (8.4-10.2); Carbon Dioxide 26 mmol/L (22-32); Chloride 98 mmol/L (98-107); Estimated Glomerular Filt Rate > 60 mL/min (>60); Globulin 2.7 g/dL (1.7-4.1); Glucose 102 mg/dL (80-110); HEMOLYSIS < 15 (0-50); Potassium 4.4 mmol/L (3.4-5.1); Sodium 128 mmol/L (137-145); Total Protein 6.2 g/dL (6.3-8.2)
[2024-09-27 17:33] LABS: Add Manual Diff / Slide Review NO; Basophils Absolute Auto 0 /uL (0-100); Basophils Percent Auto 0.1 % (0-2); Eosinophils Absolute Auto 0 /uL (0-450); Hematocrit 39.9 % (36-46); Hemoglobin 13.8 g/dL (12.0-16.0); Lymphocytes Absolute Auto 700 /uL (1100-4500); Lymphocytes Percent Auto 7.6 % (25-40); Mean Corpuscular HGB Conc 34.5 % (30-36); Mean Corpuscular Hemoglobin 33.6 PG (26-34); Mean Corpuscular Volume 97.2 fL (80-100); Monocytes Absolute Auto 400 /uL (0-900); Monocytes Percent Auto 5.1 % (3-14); Neutrophils Absolute Auto 7800 /uL (1500-7000); Neutrophils Percent Auto 87.2 % (50-75); Platelet Count 246 X10^3/uL (150-400); Red Cell Distribution Width 16.8 % (11.6-14.8); White Blood Cell Count 8.9 X10^3/uL (4.5-11.0)
== END ==
PROVIDERS: PCP Student in an Organized Health Care Education/Training Program; Visit Provider Registered Nurse
DX: C71.9 Malignant neoplasm of brain, unspecified (principal)
CPT/HCPCS: 80053; 85025

== ENCOUNTER → 2024-10-02 12:33 | Outpatient (ROUT) | payer MEDICARE, OTHER, SELFPAY ==
[2021-04-16 00:15] VITALS: BMI 31.7
[2024-10-02 12:45] LABS: Appearance Urine UA SL CLOUDY; Bilirubin Urine UA NEGATIVE (NEGATIVE); Color Urine UA YELLOW; Glucose Urine UA NEGATIVE (Negative); Ketones Urine UA NEGATIVE (NEGATIVE); Leukocyte Esterase Urine UA 1+ (NEGATIVE); Nitrite Urine UA POSITIVE (Negative); Occult Blood Urine UA NEGATIVE (Negative); Protein Urine UA NEGATIVE (Negative); Urobilinogen Urine UA 0.2 E.U./dL (0.2)
[2024-10-02 12:46] LABS: pH Urine UA 6.5 (4.5-8.0)
[2024-10-02 12:49] LABS: Hematocrit 36.6 % (36-46); Hemoglobin 12.4 g/dL (12.0-16.0); Mean Corpuscular HGB Conc 33.8 % (30-36); Mean Corpuscular Hemoglobin 33.1 PG (26-34); Platelet Count 217 X10^3/uL (150-400); Red Blood Cell Count 3.73 X10^6/uL (4.0-5.2); Red Cell Distribution Width 16.4 % (11.6-14.8); White Blood Cell Count 7.6 X10^3/uL (4.5-11.0)
[2024-10-02 12:51] LABS: Add Manual Diff / Slide Review YES; Bacteria Urine Many (>30); Culture Indicated Urine Specimen Cultured; RBC Urine None Seen (0-5/HPF); Squamous Epithelial Cell Urine 1-5 /HPF (0-5/HPF); WBC Urine 1-5/HPF (0-5/HPF)
[2024-10-02 12:52] LABS: Urine Volume Low Vol <10mL unspun
[2024-10-02 12:58] LABS: Alanine Aminotransferase 53 IU/L (<35); Albumin 2.9 g/dL (3.5-5.0); Albumin Globulin Ratio 1.3 (1.0-2.8); Alkaline Phosphatase 37 U/L (38-126); Aspartate Aminotransferase 27 IU/L (14-36); BUN Creatinine Ratio 32.4 (6-22); Bilirubin Total 0.7 mg/dL (0.2-1.3); Blood Urea Nitrogen 23 mg/dL (7-17); Carbon Dioxide 26 mmol/L (22-32); Chloride 100 mmol/L (98-107); Estimated Glomerular Filt Rate > 60 mL/min (>60); Globulin 2.3 g/dL (1.7-4.1); Glucose 72 mg/dL (80-110); HEMOLYSIS 22 (0-50); Sodium 131 mmol/L (137-145); Total Protein 5.2 g/dL (6.3-8.2)
[2024-10-02 13:13] LABS: Neutrophils Absolute Manual 4256 /uL (3000-5900); Total Cells Counted 100
[2024-10-02 13:14] LABS: Anisocytosis 1+
[2024-10-03 15:17] LABS: Osmolality Urine 646 mOsmol/kg (.); Osmolality, Serum 280 mOsmol/kg (280-301)
== END ==
PROVIDERS: PCP Student in an Organized Health Care Education/Training Program
DX: E87.1 Hypo-osmolality and hyponatremia (principal)
CPT/HCPCS: 80053; 81001; 83930; 83935; 85007; 85025; 87077; 87086; 87186

== ENCOUNTER → 2024-10-17 16:28 | Outpatient (ROUT) | payer MEDICARE, OTHER, SELFPAY ==
[2021-04-16 00:15] VITALS: BMI 31.7
[2024-10-17 16:55] LABS: BUN Creatinine Ratio 23.9 (6-22); Blood Urea Nitrogen 22 mg/dL (7-17); Calcium 9.3 mg/dL (8.4-10.2); Carbon Dioxide 26 mmol/L (22-32); Chloride 99 mmol/L (98-107); Estimated Glomerular Filt Rate > 60 mL/min (>60); Glucose 100 mg/dL (80-110); HEMOLYSIS < 15 (0-50); Potassium 4.6 mmol/L (3.4-5.1); Sodium 129 mmol/L (137-145)
== END ==
PROVIDERS: PCP Student in an Organized Health Care Education/Training Program; Visit Provider Student in an Organized Health Care Education/Training Program
DX: E87.1 Hypo-osmolality and hyponatremia (principal)
CPT/HCPCS: 80048

== ENCOUNTER → 2024-10-23 11:42 | Outpatient (ROUT) | payer MEDICARE, OTHER, SELFPAY ==
[2021-04-16 00:15] VITALS: BMI 31.7
[2024-10-23 11:49] LABS: Add Manual Diff / Slide Review NO; Basophils Absolute Auto 0 /uL (0-100); Basophils Percent Auto 0.3 % (0-2); Eosinophils Absolute Auto 100 /uL (0-450); Eosinophils Percent Auto 0.7 % (2-4); Hematocrit 38.7 % (36-46); Hemoglobin 13.2 g/dL (12.0-16.0); Lymphocytes Absolute Auto 3000 /uL (1100-4500); Lymphocytes Percent Auto 34.7 % (25-40); Mean Corpuscular Hemoglobin 33.8 PG (26-34); Mean Corpuscular Volume 99.3 fL (80-100); Monocytes Absolute Auto 600 /uL (0-900); Monocytes Percent Auto 6.9 % (3-14); Neutrophils Absolute Auto 5000 /uL (1500-7000); Neutrophils Percent Auto 57.4 % (50-75); Platelet Count 191 X10^3/uL (150-400); Red Blood Cell Count 3.89 X10^6/uL (4.0-5.2); Red Cell Distribution Width 16.4 % (11.6-14.8); White Blood Cell Count 8.6 X10^3/uL (4.5-11.0)
[2024-10-23 12:05] LABS: Alanine Aminotransferase 101 IU/L (<35); Albumin 3.1 g/dL (3.5-5.0); Albumin Globulin Ratio 1.4 (1.0-2.8); Alkaline Phosphatase 34 U/L (38-126); Aspartate Aminotransferase 52 IU/L (14-36); BUN Creatinine Ratio 37.7 (6-22); Bilirubin Total 0.6 mg/dL (0.2-1.3); Blood Urea Nitrogen 26 mg/dL (7-17); Calcium 8.9 mg/dL (8.4-10.2); Carbon Dioxide 29 mmol/L (22-32); Chloride 102 mmol/L (98-107); Estimated Glomerular Filt Rate > 60 mL/min (>60); Globulin 2.2 g/dL (1.7-4.1); Glucose 81 mg/dL (80-110); HEMOLYSIS < 15 (0-50); Potassium 3.9 mmol/L (3.4-5.1); Sodium 134 mmol/L (137-145); Total Protein 5.3 g/dL (6.3-8.2)
== END ==
PROVIDERS: PCP Student in an Organized Health Care Education/Training Program; Visit Provider Student in an Organized Health Care Education/Training Program
DX: C71.9 Malignant neoplasm of brain, unspecified (principal)
CPT/HCPCS: 80053; 85025

== ENCOUNTER → 2024-12-05 13:28 | Outpatient (ROUT) | payer MEDICARE, OTHER, SELFPAY ==
[2021-04-16 00:15] VITALS: BMI 31.7
[2024-12-05 13:44] LABS: Add Manual Diff / Slide Review NO; Basophils Absolute Auto 0 /uL (0-100); Basophils Percent Auto 0.1 % (0-2); Eosinophils Absolute Auto 0 /uL (0-450); Eosinophils Percent Auto 0.2 % (2-4); Hematocrit 39.3 % (36-46); Hemoglobin 13.4 g/dL (12.0-16.0); Lymphocytes Absolute Auto 1400 /uL (1100-4500); Lymphocytes Percent Auto 18.7 % (25-40); Mean Corpuscular Hemoglobin 34.7 PG (26-34); Mean Corpuscular Volume 102.3 fL (80-100); Monocytes Absolute Auto 500 /uL (0-900); Monocytes Percent Auto 6.2 % (3-14); Neutrophils Absolute Auto 5700 /uL (1500-7000); Neutrophils Percent Auto 74.8 % (50-75); Platelet Count 194 X10^3/uL (150-400); Red Blood Cell Count 3.85 X10^6/uL (4.0-5.2); White Blood Cell Count 7.7 X10^3/uL (4.5-11.0)
[2024-12-05 13:55] LABS: Alanine Aminotransferase 151 IU/L (<35); Albumin 3.4 g/dL (3.5-5.0); Albumin Globulin Ratio 1.6 (1.0-2.8); Alkaline Phosphatase 39 U/L (38-126); Aspartate Aminotransferase 70 IU/L (14-36); Bilirubin Total 0.6 mg/dL (0.2-1.3); Blood Urea Nitrogen 20 mg/dL (7-17); Calcium 8.9 mg/dL (8.4-10.2); Carbon Dioxide 30 mmol/L (22-32); Chloride 100 mmol/L (98-107); Estimated Glomerular Filt Rate > 60 mL/min (>60); Globulin 2.1 g/dL (1.7-4.1); Glucose 82 mg/dL (80-110); HEMOLYSIS < 15 (0-50); Potassium 4.2 mmol/L (3.4-5.1); Sodium 132 mmol/L (137-145); Total Protein 5.5 g/dL (6.3-8.2)
== END ==
PROVIDERS: PCP Student in an Organized Health Care Education/Training Program; Visit Provider Psychiatry & Neurology Neurology
DX: C71.9 Malignant neoplasm of brain, unspecified (principal)
CPT/HCPCS: 80053; 85025

== ENCOUNTER → 2025-02-07 18:28 | Outpatient (ROUT) | payer MEDICARE, OTHER, SELFPAY ==
[2021-04-16 00:15] VITALS: BMI 31.7
[2025-02-07 18:46] LABS: BUN Creatinine Ratio 39.6 (6-22); Blood Urea Nitrogen 21 mg/dL (7-17); Carbon Dioxide 14 mmol/L (22-32); Chloride 107 mmol/L (98-107); Estimated Glomerular Filt Rate > 60 mL/min (>60); Glucose 127 mg/dL (80-110); Sodium 133 mmol/L (137-145)
[2025-02-07 18:51] LABS: HEMOLYSIS 78 (0-50)
[2025-02-07 18:55] LABS: Potassium 4.1 mmol/L (3.4-5.1)
== END ==
PROVIDERS: PCP Student in an Organized Health Care Education/Training Program; Visit Provider Nurse Practitioner Family
DX: E87.8 Other disorders of electrolyte and fluid balance, not elsewhere classified (principal)
CPT/HCPCS: 80048